=== PATIENT | female | born 1965 | race Caucasian/White ===

== ENCOUNTER 2018-06-04 21:06 | Emergency (ER) | payer MEDICAID ==
[2018-06-04] MEDS ORDERED: Ondansetron 4 MG/2 ML SDV IVPUSH ONE (21:59)
[2018-06-04] MEDS ORDERED: Ketorolac 30 MG/ML SDV IVPUSH ONE (21:59)
[2018-06-04] MEDS ORDERED: Sodium Chloride 0.9% 1,000 ML IV SCH (22:00)
--- NOTE | 2018-06-04 23:39 | EDM.PDOC ---
ED HPI GENERAL MEDICAL PROBLEM - General Chief Complaint: Abdominal Pain Stated Complaint: VOMITING/DIARRHEA Time Seen by Provider: 06/04/18 21:34 Source of Information: Reports: Patient History Limitations: Reports: No Limitations - History of Present Illness INITIAL COMMENTS - FREE TEXT/NARRATIVE: This is a 52-year-old female. She comes in tonight because she is having abdominal pain and some diarrhea. She states that her belly is gurgling a lot as well. She has a history of diverticulitis and had some mild lower abdominal tenderness. Today she also experienced an episode of nausea and vomiting and some sweating but no fever. She says she gets a history of diverticulitis one to 2 times every year. She denies any other acute symptoms. She does not take Tylenol or ibuprofen and she does not drink alcohol. He has no history of hepatitis. Abdomen Pain Score (Numeric/FACES): 10 - Related Data Allergies Allergy/AdvReac Type Severity Reaction Status Date / Time No Known Allergies Allergy Verified 06/04/18 21:35 Home Meds: Home Meds Dexlansoprazole [Dexilant] 30 mg PO DAILY 06/04/18 [History] Dicyclomine [Bentyl] 20 mg PO TID PRN #20 tab 06/04/18 [Rx] FLUoxetine [PROzac] 10 mg PO DAILY 06/04/18 [History] Levothyroxine Sodium [Synthroid] 115 mcg PO DAILY 06/04/18 [History] Montelukast [Singulair] 10 mg PO DAILY 06/04/18 [History] Potassium Bicarbonate/Cit Ac [K Effervescent] 25 meq PO QAM #5 tablet.eff [Rx] Past Medical History Gastrointestinal History: Reports: Diverticulosis, GERD Musculoskeletal History: Reports: Back Pain, Chronic, Neck Pain, Chronic Neurological History: Reports: Migraines Endocrine/Metabolic History: Reports: Hypothyroidism - Past Surgical History GI Surgical History: Reports: Cholecystectomy Female Surgical History: Reports: Hysterectomy Social & Family History - Tobacco Use Smoking Status *Q: Current Every Day Smoker Years of Tobacco use: 20 Packs/Tins Daily: 0.5 - Caffeine Use Caffeine Use: Reports: Coffee, Tea - Recreational Drug Use Recreational Drug Use: No ED ROS GENERAL - Review of Systems Review Of Systems: See Below Constitutional: Denies: Fever, Chills HEENT: Reports: No Symptoms Respiratory: Reports: No Symptoms Cardiovascular: Reports: No Symptoms Endocrine: Reports: No Symptoms GI/Abdominal: Reports: Abdominal Pain, Diarrhea, Nausea, Vomiting : Reports: No Symptoms Musculoskeletal: Reports: No Symptoms Skin: Reports: No Symptoms Neurological: Reports: No Symptoms Psychiatric: Reports: No Symptoms Hematologic/Lymphatic: Reports: No Symptoms ED EXAM, GI/ABD - Physical Exam Exam: See Below Exam Limited By: No Limitations General Appearance: Alert, WD/WN, No Apparent Distress Eyes: Bilateral: Normal Appearance Ears: Normal External Exam Nose: Normal Inspection Throat/Mouth: Normal Inspection, Normal Lips, Normal Voice, No Airway Compromise Head: Normocephalic Neck: Supple Respiratory/Chest: No Respiratory Distress, Lungs Clear, Normal Breath Sounds Cardiovascular: Regular Rate, Rhythm, No Murmur GI/Abdominal Exam: Soft, Other (Bowel sounds are normal, she has generalized soreness in the lower abdomen both left and right lower quadrants, I cannot feel her liver edge but she does complain of some soreness in the right upper quadrant, negative Hernandez sign, no rigidity no rebound noted on palpation) Back Exam: Normal Inspection, Full Range of Motion Extremities: Normal Inspection, Normal Range of Motion Neurological: Alert, Oriented Psychiatric: Normal Affect, Normal Mood Skin Exam: Warm, Dry Course - Vital Signs Last Recorded V/S: Last Vital Signs Temp 98.9 F 06/04/18 21:32 Pulse 75 06/04/18 21:32 Resp 20 06/04/18 21:32 BP 107/74 06/04/18 21:32 Pulse Ox 95 06/04/18 21:32 - Orders/Labs/Meds Orders: Active Orders 24 hr Category Date Time Status UA W/MICROSCOPIC [URIN] Stat Lab 06/04/18 23:08 Results Sodium Chloride 0.9% [Normal Saline] 1,000 ml Med 06/04/18 22:00 Active IV ASDIRECTED Medication Orders Sodium Chloride (Normal Saline) 1,000 mls @ 1,000 mls/hr IV ASDIRECTED CHRISTINA Last Admin: 06/04/18 22:39 Dose: 1,000 mls/hr Labs: Laboratory Tests 06/04/18 06/04/18 06/04/18 Range/Units 22:40 22:40 23:08 WBC 9.19 (3.98-10.04) K/mm3 RBC 5.02 (3.98-5.22) M/mm3 Hgb 14.7 (11.2-15.7) gm/L Hct 44.2 (34.1-44.9) % MCV 88.0 (79.4-94.8) fl MCH 29.3 (25.6-32.2) pg MCHC 33.3 (32.2-35.5) g/dl RDW Std Deviation 39.1 (36.4-46.3) fL Plt Count 276 (182-369) K/mm3 MPV 10.7 (9.4-12.3) fl Neut % (Auto) 83.9 H (34.0-71.1) % Lymph % (Auto) 7.0 L (19.3-51.7) % [place] % (Auto) 7.5 (4.7-12.5) % Eos % (Auto) 1.2 (0.7-5.8) Baso % (Auto) 0.2 (0.1-1.2) % Neut # (Auto) 7.71 H (1.56-6.13) K/mm3 Lymph # (Auto) 0.64 L (1.18-3.74) K/mm3 [place] # (Auto) 0.69 H (0.24-0.36) K/mm3 Eos # (Auto) 0.11 (0.04-0.36) K/mm3 Baso # (Auto) 0.02 (0.01-0.08) K/mm3 Manual Slide Review Abnormal smear Sodium 141 (136-145) mEq/L Potassium 3.1 L (3.5-5.1) mEq/L Chloride 105 (98-107) mEq/L Carbon Dioxide 23 (21-32) mEq/L Anion Gap 16.1 H (5-15) BUN 16 (7-18) mg/dL Creatinine 0.8 (0.55-1.02) mg/dL Est Cr Clr Drug Dosing 72.65 mL/min Estimated GFR (MDRD) > 60 (>60) mL/min BUN/Creatinine Ratio 20.0 H (14-18) Glucose 120 H (74-106) mg/dL Calcium 8.7 (8.5-10.1) mg/dL Total Bilirubin 0.4 (0.2-1.0) mg/dL AST 147 H (15-37) U/L ALT 118 H (14-59) U/L Alkaline Phosphatase 165 H (46-116) U/L C-Reactive Protein 3.4 H* (<1.0) mg/dL Total Protein 6.5 (6.4-8.2) g/dl Albumin 3.3 L (3.4-5.0) g/dl Globulin 3.2 gm/dL Albumin/Globulin Ratio 1.0 (1-2) Urine Color Eun H (Yellow) Urine Appearance Clear (Clear) Urine pH 5.5 (5.0-8.0) Ur Specific [place] > or = 1.030 (1.005-1.030) Urine Protein 1+ H (Negative) Urine Glucose (UA) Negative (Negative) Urine Ketones Negative (Negative) Urine Occult Blood Negative (Negative) Urine Nitrite Negative (Negative) Urine Bilirubin 1+ H (Negative) Urine Urobilinogen 0.2 (0.2-1.0) Ur Leukocyte Esterase Negative (Negative) Meds: Medications Generic Name Dose Route Start Last Admin Trade Name Freq PRN Reason Stop Dose Admin Sodium Chloride 1,000 mls @ 1,000 mls/hr 06/04/18 22:00 06/04/18 22:39 Normal Saline IV 1,000 mls/hr ASDIRECTED CHRISTINA Administration Discontinued Medications Generic Name Dose Route Start Last Admin Trade Name Freq PRN Reason Stop Dose Admin Ketorolac Tromethamine 30 mg 06/04/18 21:59 06/04/18 22:39 Toradol IVPUSH 06/04/18 22:00 30 mg ONETIME ONE Administration Ondansetron HCl 4 mg 06/04/18 21:59 06/04/18 22:40 Zofran IVPUSH 06/04/18 22:00 4 mg ONETIME ONE Administration - Re-Assessments/Exams Free Text/Narrative Re-Assessment/Exam: 06/04/18 23:37 I spoke to the patient regarding her lab results that her white count was normal her C reactive protein was slightly elevated but her liver enzymes were elevated and her potassium was 3.1. I do not believe that her diverticulitis is flared up at this point or if it is its very early. I am going to give her some Bentyl for abdominal cramps as well as give her a potassium supplement to bring her potassium back up. I encouraged her to follow-up with a local family doctor for reevaluation of her liver enzyme elevation as well as to monitor her diverticulitis. Patient states that she will. Departure - Departure Time of Disposition: 23:38 Disposition: Home, Self-Care 01 Condition: Fair Clinical Impression: Elevated liver enzymes, Hypokalemia Abdominal pain Qualifiers: Abdominal location: lower abdomen, unspecified Qualified Code(s): R10.30 - Lower abdominal pain, unspecified Diverticulosis Qualifiers: Diverticulosis site: diverticulosis of large intestine Diverticulosis bleeding : diverticulosis without bleeding Qualified Code(s): K57.30 - Diverticulosis of large intestine without perforation or abscess without bleeding - Discharge Information *PRESCRIPTION DRUG MONITORING PROGRAM REVIEWED*: Not Applicable *COPY OF PRESCRIPTION DRUG MONITORING REPORT IN PATIENT [place]: Not Applicable Prescriptions: Dicyclomine [Bentyl] 20 mg PO TID PRN #20 tab PRN Reason: Abdominal Pain Potassium Bicarbonate/Cit Ac [K Effervescent] 25 meq PO QAM #5 tablet.eff Referrals: PCP,None [Primary Care Provider] - Additional Instructions: take the Bentyl as needed for the abdominal cramps, and take the potassium faithfully for the next 5 days, follow-up with one of the physicians that we have giving you this next week for monitoring of your abdominal pain and your diverticulitis, have the doctor recheck your potassium and also monitor your liver enzymes that are elevated, return to the ER if needed - My Orders Last 24 Hours: My Active Orders 06/04/18 22:00 Sodium Chloride 0.9% [Normal Saline] 1,000 ml IV ASDIRECTED 06/04/18 23:08 UA W/MICROSCOPIC [URIN] Stat - Assessment/Plan Last 24 Hours: My Active Orders 06/04/18 22:00 Sodium Chloride 0.9% [Normal Saline] 1,000 ml IV ASDIRECTED 06/04/18 23:08 UA W/MICROSCOPIC [URIN] Stat
[2018-06-04] MEDS ORDERED: Dicyclomine 10 MG Cap PO ONE (23:47)
== END 2018-06-04 23:54 | disposition home or self-care (01) ==
LOC: JD.ED 21:06
DX: K57.30 Diverticulosis of large intestine without perforation or abscess without bleeding (principal); E87.6 Hypokalemia; R74.8 Abnormal levels of other serum enzymes; E03.9 Hypothyroidism, unspecified; F17.210 Nicotine dependence, cigarettes, uncomplicated; Z90.49 Acquired absence of other specified parts of digestive tract; Z90.710 Acquired absence of both cervix and uterus
CPT/HCPCS: 36415; 80053; 81001; 85025; 86140; 96361; 96374; 96375; 99284; A9270; J1885; J2405; J7040

== ENCOUNTER 2018-06-19 23:33 | Emergency (ER) | payer MEDICAID ==
--- NOTE | 2018-06-19 23:54 | EDM.PDOC ---
ED HPI GENERAL MEDICAL PROBLEM - General Chief Complaint: Abdominal Pain Stated Complaint: DIVERTIULITUS ABDOMINAL PAIN INFLAMATION Time Seen by Provider: 06/19/18 23:54 Source of Information: Reports: Patient History Limitations: Reports: No Limitations - History of Present Illness INITIAL COMMENTS - FREE TEXT/NARRATIVE: 52-year-old female presents to the ED with gradually worsening left lower quadrant and suprapubic abdominal pain. Patient has a history of recurrent diverticulitis she estimates about 6 bouts of diverticulitis in the last 5 years. She was seen at the walk-in clinic at [place] on 08 June and did have a CT scan which suggested diverticulitis. Patient was treated with Cipro 500 mg twice a day and Flagyl 500 mg 3 times a day for 5days. She reports the pain really never settled down. She is scheduled loose diarrhea stools usually 2-4 per day. Not noted. Now she is having increased suprapubic pressure discomfort with terminal dysuria and pressure in the perineum when she sits. She still claims to have intermittent fever and chills although she is afebrile the time of my exam. She's had previous transvaginal hysterectomy with laparoscopic assist and previous to that a tubal ligation. Is also had a previous laparoscopic cholecystectomy. He states she is walking slowly due to the pain. Appetite remains fair Onset: Gradual Onset Date: 06/05/18 (Do have left lower quadrant abdominal pain June 05 [facility] and diagnosed with diverticulitis) Duration: Day(s):, Getting Worse Location: Reports: Abdomen Quality: Reports: Ache (Left lower quadrant of the abdomen and suprapubic abdomen with pain in the perineum.), Other Severity: Moderate (Coughing makes the pain much worse) Improves with: Reports: Rest, Other Worsens with: Reports: Other (And lying down) Context: Denies: Activity ( with was standing and coughing.), Exercise, Lifting , Sick Contact, Trauma, Other Associated Symptoms: Reports: Fever/Chills, Loss of Appetite, Malaise ( Decreased appetite), Other (Loose stools usually 2-4 per day semi-formed at present). Denies: Headaches, Seizure, Shortness of Breath, Syncope, Weakness Treatments FLIGHT INFORMATION EXPEDITER: Reports: Other (see below) (Hydrocodone tablets when necessary) Lower Abdomen Pain Score (Numeric/FACES): 10 - Related Data Allergies Allergy/AdvReac Type Severity Reaction Status Date / Time No Known Allergies Allergy Verified 06/04/18 21:35 Home Meds: Home Meds Dexlansoprazole [Dexilant] 30 mg PO DAILY 06/04/18 [History] Dicyclomine [Bentyl] 20 mg PO TID PRN #20 tab 06/04/18 [Rx] FLUoxetine [PROzac] 10 mg PO DAILY 06/04/18 [History] Levothyroxine Sodium [Synthroid] 115 mcg PO DAILY 06/04/18 [History] Montelukast [Singulair] 10 mg PO DAILY 06/04/18 [History] Hydrocodone/Acetaminophen [Hydrocodon-Acetaminophen 5-325] 1 each PO Q4H #16 tablet 06/20/18 [Rx] Levofloxacin [Levaquin] 500 mg PO DAILY #7 tablet 06/20/18 [Rx] metroNIDAZOLE [Flagyl] 500 mg PO Q12H #14 tab 06/20/18 [Rx] Past Medical History Gastrointestinal History: Reports: Diverticulosis, GERD Musculoskeletal History: Reports: Back Pain, Chronic, Neck Pain, Chronic Neurological History: Reports: Migraines Endocrine/Metabolic History: Reports: Hypothyroidism - Past Surgical History GI Surgical History: Reports: Cholecystectomy Female Surgical History: Reports: Hysterectomy Social & Family History - Family History Family Medical History: Noncontributory - Tobacco Use Smoking Status *Q: Current Every Day Smoker Years of Tobacco use: 40 Packs/Tins Daily: 0.5 - Caffeine Use Caffeine Use: Reports: None - Recreational Drug Use Recreational Drug Use: No - Living Situation & Occupation Living situation: Reports: Occupation: Employed ED ROS GENERAL - Review of Systems Review Of Systems: See Below (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) Constitutional: Reports: Fever, Chills, Malaise, Decreased Appetite HEENT: Reports: No Symptoms Respiratory: Reports: No Symptoms Cardiovascular: Reports: No Symptoms Endocrine: Reports: Fatigue GI/Abdominal: Reports: Abdominal Pain (See history of present illness mostly left lower quadrant and suprapubic abdominal pain worsened by coughing and walking) : Reports: Frequency, Other Skin: Reports: No Symptoms Neurological: Reports: No Symptoms Psychiatric: Reports: No Symptoms Hematologic/Lymphatic: Reports: No Symptoms Immunologic: Reports: No Symptoms ED EXAM, GI/ABD - Physical Exam Exam: See Below Exam Limited By: No Limitations General Appearance: Alert, WD/WN, No Apparent Distress, Other (Vital signs are normal with temperature 36.6 pulse of 71 blood pressure 113/88) Eyes: Bilateral: Normal Appearance (No scleral icterus.) Throat/Mouth: Normal Inspection, Normal Lips, Normal Oropharynx Head: Atraumatic, Normocephalic Respiratory/Chest: No Respiratory Distress, Lungs Clear, Normal Breath Sounds, No Accessory Muscle Use Cardiovascular: Normal Peripheral Pulses, Regular Rate, Rhythm, No Edema, No Gallop, No Murmur, No Rub GI/Abdominal Exam: Normal Bowel Sounds, No Organomegaly, Guarding, Tender ( Tenderness appreciated suprapubically and left lower quadrant.). No: Rigid ( Tender left lower quadrant of the abdomen with some mild guarding but no rebound tenderness), Rebound Back Exam: Normal Inspection, Full Range of Motion. No: CVA Tenderness (L), CVA Tenderness (R) Extremities: Normal Inspection, Normal Range of Motion, Non-Tender, No Pedal Edema Neurological: Alert, Oriented, CN II-XII Intact, Normal Cognition Psychiatric: Normal Affect, Normal Mood Skin Exam: Warm, Intact, Normal Color, No Rash Course - Vital Signs Last Recorded V/S: Last Vital Signs Temp 36.6 C 06/19/18 23:46 Pulse 71 06/19/18 23:46 Resp 18 06/19/18 23:46 BP 113/88 06/19/18 23:46 Pulse Ox 94 L 06/19/18 23:46 - Orders/Labs/Meds Orders: Active Orders 24 hr Category Date Time Status Abdomen Pelvis w Cont [CT] Stat Exams 06/20/18 00:06 Taken Labs: Laboratory Tests 06/20/18 06/20/18 Range/Units 00:55 00:55 WBC 7.50 (3.98-10.04) K/mm3 RBC 4.85 (3.98-5.22) M/mm3 Hgb 13.9 (11.2-15.7) gm/L Hct 43.1 (34.1-44.9) % MCV 88.9 (79.4-94.8) fl MCH 28.7 (25.6-32.2) pg MCHC 32.3 (32.2-35.5) g/dl RDW Std Deviation 40.9 (36.4-46.3) fL Plt Count 338 (182-369) K/mm3 MPV 11.2 (9.4-12.3) fl Neutrophils % (Manual) 53 (40-60) % Band Neutrophils % 0 (0-10) % Lymphocytes % (Manual) 32 (20-40) % Atypical Lymphs % 0 % Monocytes % (Manual) 7 (2-10) % Eosinophils % (Manual) 5 (0.7-5.8) % Basophils % (Manual) 3 H (0.1-1.2) Platelet Estimate Adequate Plt Morphology Comment Normal RBC Morph Comment Normal Sodium 143 (136-145) mEq/L Potassium 4.1 (3.5-5.1) mEq/L Chloride 106 (98-107) mEq/L Carbon Dioxide 27 (21-32) mEq/L Anion Gap 14.1 (5-15) BUN 19 H (7-18) mg/dL Creatinine 0.6 (0.55-1.02) mg/dL Est Cr Clr Drug Dosing 96.86 mL/min Estimated GFR (MDRD) > 60 (>60) mL/min BUN/Creatinine Ratio 31.7 H (14-18) Glucose 111 H (74-106) mg/dL Calcium 8.8 (8.5-10.1) mg/dL Magnesium 1.9 (1.8-2.4) mg/dl Total Bilirubin 0.2 (0.2-1.0) mg/dL AST 20 (15-37) U/L ALT 38 (14-59) U/L Alkaline Phosphatase 161 H (46-116) U/L C-Reactive Protein 0.3 (<1.0) mg/dL Total Protein 6.9 (6.4-8.2) g/dl Albumin 3.4 (3.4-5.0) g/dl Globulin 3.5 gm/dL Albumin/Globulin Ratio 1.0 (1-2) Lipase 161 (73-393) U/L Meds: Medications Discontinued Medications Generic Name Dose Route Start Last Admin Trade Name Freq PRN Reason Stop Dose Admin Diatrizoate Meglum/Diatrizoate Sod 120 ml 06/20/18 01:52 06/20/18 01:53 Gastrografin 37% PO 06/20/18 01:53 60 ml ONETIME ONE Administration Hydromorphone HCl 1 mg 06/20/18 00:04 06/20/18 00:40 Dilaudid IVPUSH 06/20/18 00:05 1 mg ONETIME ONE Administration Hydromorphone HCl 1 mg 06/20/18 01:28 06/20/18 01:41 Dilaudid IVPUSH 06/20/18 01:29 1 mg ONETIME ONE Administration Dextrose/Sodium Chloride 1,000 mls @ 500 mls/hr 06/20/18 00:15 06/20/18 00:39 Dextrose 5%-Normal Saline IV 500 mls/hr ASDIRECTED CHRISTINA Administration Levofloxacin/Dextrose 750 mg/ 150 mls @ 100 mls/hr 06/20/18 00:07 06/20/18 00 :44 Premix IV 06/20/18 01:36 100 mls/hr ONETIME ONE Administration Iopamidol 100 ml 06/20/18 01:52 06/20/18 01:53 Isovue-300 (61%) IVPUSH 06/20/18 01:53 100 ml ONETIME ONE Administration Ondansetron HCl 4 mg 06/20/18 00:05 06/20/18 00:39 Zofran IVPUSH 06/20/18 00:06 4 mg ONETIME ONE Administration - Radiology Interpretation Free Text/Narrative:: 52-year-old female with a history of recurrent diverticulitis she estimates about 6 times. Presents to the ED with increasing left lower quadrant abdominal pain and suprapubic tenderness and pressure in the perineum she was seen initially on 08 June after having symptoms for [address] scan scan done at the clinic did reveal diverticulitis. She was placed on a course of Cipro and Flagyl I believe for 7 days. Her's that she didn't really seem to get better on this treatment plan and now is much worse over the last 4-5 days. This is worse now than several been. She claims to have intermittent fever and chills although she's afebrile at the time of my exam. Abdominal examination does reveal tenderness throughout the left lower quadrant and suprapubic abdomen with guarding but no rebound tenderness. On his with perineal pressure discomfort that she may well have a pelvic abscess. Therefore start repeat CT scan of the abdomen pelvis will be done with oral and IV contrast. I will not do blood cultures at this time since she is afebrile. Routine labs and CRP will be done. We'll start her on Levaquin 750 mg IV. Given Dilaudid 1 mg with Zofran 4 mg IV for pain relief. - Re-Assessments/Exams Free Text/Narrative Re-Assessment/Exam: 06/20/18 01:28 patient is pain is getting worse again since having the oral contrast. We'll therefore repeat Dilaudid 1 mg IV. Labs are back.Labs reveal a normal white count at 7.50 with differential pending. Hemoglobin is 13.9 with hematocrit of 43.1. Bili count is 338,000. Sodium was 143 with a potassium of 4.1. Chloride is 106 with a bicarbonate 27. Anion gap is 14.1. BUNs 19 with a creatinine of 0.6. Glucose is 111. Calcium was 8.8 with a magnesium of 1.9. Total bilirubin is 0.2. AST is 20. ALT is 38. Alk phosphatase is mildly elevated 161. C-reactive protein is 0.3. Total protein 6.9 with albumin fraction slightly low at 3.4. Lipase is 161. Labs are not suggestive of an abscess formation. She is scheduled for CT in about 15 minutes. 06/20/18 02:33 CT of the abdomen and pelvis has been completed with oral and IV contrast. Visualized portions of the base of the lungs are clear. The liver appears to have a asymmetric lesion in the left lobe compatible with an AV malformation. This needs to be compared to previous CT examination done at [facility] and perhaps follow-up with an ultrasound to help define characteristics of this lesion. Will await radiology report in this regard. Both kidneys appear to be normal with no signs of obstructing lesions. Both adrenal glands are normal. Pancreas is well-visualized and is normal. Stomach is contrast filled. The bowel does contain numerous diverticuli throughout the entire colon. There is no evidence of diverticular abscess or significant inflammation of the colon at this time. Amount of stool is present in the rectal vault. Therefore I believe she just needs to continue antibiotics for another week to settle down the inflammation completely. Placed on Levaquin 500 mg once daily for 7 more days and Flagyl 500 mg twice a day for another 7 days as well. She will follow-up with her personal care physician after this. Also advised her to go on Metamucil daily to try and prevent recurrent bouts of diverticulitis. Departure - Departure Time of Disposition: 02:39 Disposition: Home, Self-Care 01 Condition: Fair Clinical Impression: Diverticulitis of sigmoid colon - Discharge Information *PRESCRIPTION DRUG MONITORING PROGRAM REVIEWED*: Not Applicable *COPY OF PRESCRIPTION DRUG MONITORING REPORT IN PATIENT [place]: Not Applicable Prescriptions: Hydrocodone/Acetaminophen [Hydrocodon-Acetaminophen 5-325] 1 each PO Q4H #16 tablet Levofloxacin [Levaquin] 500 mg PO DAILY #7 tablet metroNIDAZOLE [Flagyl] 500 mg PO Q12H #14 tab Instructions: Diverticulitis, [id number] Referrals: PCP,None [Primary Care Provider] - Forms: ED Department Discharge Additional Instructions: Evaluation in the emergency room tonight in regards to persistent lower abdominal pain after being treated for diverticulitis on 08 June. A 7 day course of antibiotic were given at that time which was Cipro and Flagyl. Over the last 4-5 days you've had increasing daily left lower quadrant and suprapubic abdominal pain as well as pressure in the perineum when you sit. Associated intermittent fever and chills. For concerns were voiced about potential diverticular abscess formation. Lab work carried out reveals a normal white count with no signs of serious infection. CT of the abdomen and pelvis was performed and reveals extensive diverticula of the entire left lower colon and upper colon. Active diverticulitis or infective process outside the colon was appreciated and no abscess was identified in the pelvis. Appears that the diverticulitis is partially treated and therefore I think it's prudent that you continue antibiotic therapy. He did receive Levaquin 750 mg intravenously while in the ED. Suggest Levaquin 500 milligrams Once daily every night after supper for the next 7 days with metronidazole's 500 mg twice daily starting tomorrow morning for the next 7 days as well. Pain medication is to be used sparingly and as needed for lower abdominal pain. Suggest use of Metamucil on a daily basis to try to prevent recurrence of diverticular disease. - My Orders Last 24 Hours: My Active Orders 06/20/18 00:06 Abdomen Pelvis w Cont [CT] Stat - Assessment/Plan Last 24 Hours: My Active Orders 06/20/18 00:06 Abdomen Pelvis w Cont [CT] Stat
[2018-06-20] MEDS ORDERED: HYDROmorphone 1 MG/ML Syringe IVPUSH ONE ×2 (00:04→01:28)
[2018-06-20] MEDS ORDERED: Ondansetron 4 MG/2 ML SDV IVPUSH ONE (00:05)
[2018-06-20] MEDS ORDERED: Levofloxacin/Dextrose 5%-Water 750 MG in Premix Bag 1 BAG IV ONE (00:07)
[2018-06-20] MEDS ORDERED: Dextrose 5%-0.9% NaCl 1,000 ML IV SCH (00:15)
[2018-06-20] MEDS ORDERED: Diatrizoate Meglumine/Diatrizoate Sodium 37% 120 ML Bottle PO ONE (01:52)
[2018-06-20] MEDS ORDERED: Iopamidol 612 MG/ML 100 ML Bottle IVPUSH ONE (01:52)
--- NOTE | 2018-06-20 07:25 | CT ---
CT abdomen and pelvis Technique: Multiple axial sections were obtained from above the dome of the diaphragm inferiorly through the pubic symphysis. Intravenous and oral contrast was utilized. Delayed images were obtained through the bladder. Comparison: No prior abdominal imaging. Findings: Contrast noted within the distal esophagus suspicious for reflux. Small portion of the both lung bases are clear. Irregular and slightly enhancing mass lesion is noted within the liver mostly centered at the caudate lobe. This measures up to 5.9 cm in size and shows a low density center. No additional abnormality identified within the liver. Spleen appears within normal limits. Adrenal glands show no nodule. Pancreas is within normal limits. Surgical clips noted from prior cholecystectomy. Kidneys show symmetric contrast enhancement. Small 4 mm cyst noted within the right kidney. Aorta shows no aneurysm. No retroperitoneal adenopathy is seen. No mesenteric abnormalities are seen. Diverticuli are seen within the sigmoid and descending colon without diverticulitis. Appendix is seen which appears normal in size. No pelvic mass or adenopathy is seen. Mild increased stool noted within the colon. Delayed images show contrast within the distal ureters and within the bladder. Bone window settings show bilateral spondylolytic defects at L5-S1. Impression: 1. Liver mass with center area of poor enhancement suggesting the possibility of focal nodular hyperplasia. MRI could be obtained to make sure this has the same appearance by that modality. Alternatively, if patient has any outside imaging to allow for stability would also be helpful. 2. Mild increased stool within the colon. 3. Contrast reflux into the distal esophagus. 4. Other incidental findings as noted above. Nothing acute is seen. Diagnostic code #9 I agree with preliminary report from [facility], finalized on 06/20/18, 3:43 AM Central Time
== END 2018-06-20 02:57 | disposition home or self-care (01) ==
LOC: JD.ED 23:33
DX: K57.32 Diverticulitis of large intestine without perforation or abscess without bleeding (principal); F17.210 Nicotine dependence, cigarettes, uncomplicated; Z79.899 Other long term (current) drug therapy
CPT/HCPCS: 36415; 74177; 80053; 83690; 83735; 85007; 85027; 86140; 96361; 96365; 96375; 96376; 99284; J1170; J1956; J2405; J7042; Q9963; Q9967

== ENCOUNTER 2018-06-29 18:51 | Emergency (ER) | payer MEDICAID ==
[2018-06-29] MEDS ORDERED: Albuterol/Ipratropium 3.0-0.5 MG/3 ML Neb Soln NEB ONE (20:16)
--- NOTE | 2018-06-29 20:16 | EDM.PDOC ---
ED HPI GENERAL MEDICAL PROBLEM - General Chief Complaint: Respiratory Problem Stated Complaint: LUNGS SHORT OF BREATH Time Seen by Provider: 06/29/18 19:20 Source of Information: Reports: Patient, Family (), RN Notes Reviewed History Limitations: Reports: No Limitations - History of Present Illness INITIAL COMMENTS - FREE TEXT/NARRATIVE: The patient states that she has had a dry cough for the past 2 weeks. She states that she has been wheezing for 5 years, but that it is worse over the past couple of weeks. Her symptoms are worse when she is supine. No recent fever. The patient also reports left-sided chest soreness when she coughs. No prior medical evaluation for her current symptoms. The patient states that she was given the presumptive diagnosis of COPD, and that she ordinarily takes Singulair, Symbicort, and albuterol by both nebulizer and MDI, and she states that she has continued to take her usual medications, but that she has not taken any albuterol for over a month, because her nebulizer machine is in storage. She reports that she has a space chamber for her MDI, however. In addition, the patient states that she has taken Mucinex, with no improvement in her symptoms. The patient is a committed smoker, currently smoking 1 pack per day, down from 4 packs per day, since she was 15 years old. The patient also reports that she has continued to have abdominal pain. She states that she was diagnosed with diverticulitis on her most recent ED visit, treated with antibiotics, but that her symptoms have persisted. Review of prior medical records finds that the patient has been seen in this ED on only 2 prior occasions - 06/04/2018, and 06/19/2018. On her first visit, she presented with abdominal pain, nausea, vomiting, and some diarrhea. She reported a time that she had a prior history of diverticulitis, with exacerbations 1-2 times every year. No recent fever. She was found to be hemodynamically stable. A CBC, CMP, CRP, and urinalysis were entirely unremarkable, with exception of her potassium being mildly depressed at 3.1, mildly elevated transaminases, and a CRP of 3.4. She was given IV fluid , Toradol, Zofran, then discharged home with prescriptions for Bentyl and potassium chloride. She was advised to follow-up with PCP for reevaluation of her elevated LFTs and to monitor her articular disease. On the patient's second visit, she presented with a complaint of gradually worsening left lower quadrant and suprapubic abdominal pain. During that visit, she reported that she had had about 6 bouts of diverticulitis over the previous 5 years. She stated that she had been seen at the [facility] in clinic on 06/08 (after her earlier ED visit), and that a CT scan of her abdomen and pelvis suggested diverticulitis. She was treated with ciprofloxacin 500 mg BID and Flagyl 500 mg TID for 5 days. She reported that her pain had not improved, and that she continued to have loose bowel movements. She reported intermittent fevers and chills, although was noted to be afebrile in the ED. Workup included a CBC, CMP, magnesium level, CRP, lipase level, and a CT scan of the abdomen and pelvis with oral and IV contrast. Her entire workup was unremarkable during the CT scan, which noted a diverticuli in the sigmoid and descending colon without diverticulitis. Oral contrast was noted to reflux into the esophagus. The patient was treated with IV fluid, 2 mg of IV Dilaudid, IV Zofran, and 750 mg of IV Levaquin. The patient was then discharged home with prescriptions for Levaquin 500 mg Qday, Flagyl 500 mg TID x 7 days, and [place] 5/325 1 tab Q4 hrs # 16. She was advised to start taking Metamucil. The patient acknowledges that she has not followed up, and that she does not have a PCP. Throat Pain Score (Numeric/FACES): 9 - Related Data Allergies Allergy/AdvReac Type Severity Reaction Status Date / Time No Known Allergies Allergy Verified 06/29/18 19:01 Home Meds: Home Meds Dexlansoprazole [Dexilant] 30 mg PO DAILY 06/04/18 [History] Dicyclomine [Bentyl] 20 mg PO TID PRN #20 tab 06/04/18 [Rx] FLUoxetine [PROzac] 10 mg PO DAILY 06/04/18 [History] Levothyroxine Sodium [Synthroid] 115 mcg PO DAILY 06/04/18 [History] Montelukast [Singulair] 10 mg PO DAILY 06/04/18 [History] Past Medical History HEENT History: Reports: Impaired Vision Respiratory History: Reports: COPD (suspected, not tested) Gastrointestinal History: Reports: Diverticulosis, GERD Musculoskeletal History: Reports: Back Pain, Chronic, Neck Pain, Chronic Endocrine/Metabolic History: Reports: Hypothyroidism - Past Surgical History HEENT Surgical History: Reports: Oral Surgery, Tonsillectomy GI Surgical History: Reports: Cholecystectomy (2016) Female Surgical History: Reports: Breast Implant, Hysterectomy (partial, transvaginal with laparoscopic assistance), Other (See Below) (Ectopic x 2) Social & Family History - Family History Family Medical History: Noncontributory - Tobacco Use Smoking Status *Q: Current Every Day Smoker Years of Tobacco use: 37 Packs/Tins Daily: 1 Packs/Tins Daily Comment: Down from 4 ppd - Caffeine Use Caffeine Use: Reports: None - Alcohol Use Alcohol Use History: Yes Date/Time of Last Drink Comment: No alcohol since around 2012 - Recreational Drug Use Recreational Drug Use: No - Living Situation & Occupation Living situation: Reports: , with Spouse Occupation: Unemployed ED ROS GENERAL - Review of Systems Review Of Systems: ROS reveals no pertinent complaints other than HPI. ED EXAM, GENERAL - Physical Exam Exam: See Below Exam Limited By: No Limitations General Appearance: Alert, WD/WN, No Apparent Distress Eye Exam: Bilateral Eye: EOMI, Normal Inspection Ears: Normal External Exam, Hearing Grossly Normal Nose: Normal Inspection Throat/Mouth: Normal Inspection, Normal Lips, Normal Voice, No Airway Compromise Head: Atraumatic, Normocephalic Neck: Normal Inspection, Full Range of Motion Respiratory/Chest: No Respiratory Distress, No Accessory Muscle Use, Rhonchi ( increased when supine), Wheezing (expiratory). No: Decreased Breath Sounds, Crackles, Prolonged Expiration Cardiovascular: Normal Peripheral Pulses, Regular Rate, Rhythm, No Gallop, No JVD, No Murmur, No Rub Peripheral Pulses: 4+: Radial (L), Radial (R) GI/Abdominal: Normal Bowel Sounds, Soft, Non-Tender, No Organomegaly, No Distention, No Abnormal Bruit, No Mass (Female) Exam: Deferred Rectal (Female) Exam: Deferred Back Exam: Normal Inspection, Full Range of Motion, NT Extremities: Normal Inspection, Normal Range of Motion, No Pedal Edema, Normal Capillary Refill Neurological: Alert, Oriented, Normal Cognition, No Motor/Sensory Deficits Psychiatric: Anxious Skin Exam: Warm, Dry, Intact, Normal Color, No Rash Course - Vital Signs Last Recorded V/S: Last Vital Signs Temp 36.4 C 06/29/18 19:04 Pulse 80 06/29/18 19:04 Resp 16 06/29/18 19:04 BP 131/90 06/29/18 19:04 Pulse Ox 93 L 06/29/18 20:16 - Orders/Labs/Meds Orders: Active Orders 24 hr Category Date Time Status RT Aerosol Therapy [RC] ASDIRECTED Care 06/29/18 20:16 Active Chest 2V [CR] Stat Exams 06/29/18 20:13 Taken Labs: Laboratory Tests 06/29/18 06/29/18 Range/Units 20:35 20:35 WBC 7.15 (3.98-10.04) K/mm3 RBC 4.75 (3.98-5.22) M/mm3 Hgb 13.7 (11.2-15.7) gm/L Hct 42.3 (34.1-44.9) % MCV 89.1 (79.4-94.8) fl MCH 28.8 (25.6-32.2) pg MCHC 32.4 (32.2-35.5) g/dl RDW Std Deviation 43.0 (36.4-46.3) fL Plt Count 311 (182-369) K/mm3 MPV 10.7 (9.4-12.3) fl Neutrophils % (Manual) 69 H (40-60) % Band Neutrophils % 0 (0-10) % Lymphocytes % (Manual) 18 L (20-40) % Atypical Lymphs % 0 % Monocytes % (Manual) 9 (2-10) % Eosinophils % (Manual) 3 (0.7-5.8) % Basophils % (Manual) 1 (0.1-1.2) Platelet Estimate Adequate RBC Morph Comment Normal Sodium 142 (136-145) mEq/L Potassium 4.2 (3.5-5.1) mEq/L Chloride 105 (98-107) mEq/L Carbon Dioxide 25 (21-32) mEq/L Anion Gap 16.2 H (5-15) BUN 16 (7-18) mg/dL Creatinine 0.8 (0.55-1.02) mg/dL Est Cr Clr Drug Dosing 72.65 mL/min Estimated GFR (MDRD) > 60 (>60) mL/min BUN/Creatinine Ratio 20.0 H (14-18) Glucose 97 (74-106) mg/dL Calcium 9.4 (8.5-10.1) mg/dL Total Bilirubin 0.1 L (0.2-1.0) mg/dL AST 17 (15-37) U/L ALT 29 (14-59) U/L Alkaline Phosphatase 138 H (46-116) U/L Total Protein 7.3 (6.4-8.2) g/dl Albumin 3.6 (3.4-5.0) g/dl Globulin 3.7 gm/dL Albumin/Globulin Ratio 1.0 (1-2) Meds: Medications Discontinued Medications Generic Name Dose Route Start Last Admin Trade Name Freq PRN Reason Stop Dose Admin Albuterol/Ipratropium 3 ml 06/29/18 20:16 06/29/18 20:39 Duoneb 3.0-0.5 Mg/3 Ml NEB 06/29/18 20:17 3 ml ONETIME ONE Administration - Re-Assessments/Exams Free Text/Narrative Re-Assessment/Exam: 06/29/18 20:14 While the patient states that she has a history of COPD, she has never undergone pulmonary function tests, so such a diagnosis at this time is speculative. The patient may be suffering from a COPD exacerbation, however, by history, she is more likely suffering from acute bronchitis. For today's purposes, I have ordered a CBC, CMP, and two-view chest radiograph, to make sure that she does not have an infiltrate. I have also ordered a DuoNeb, to see if that modifies the expiratory wheezing that I hear on auscultation. We would expect improvement with COPD, but not with bronchitis. 06/29/18 21:05 2-view chest radiograph appears to be grossly normal. The cardiac silhouette is within normal limits. No pulmonary vascular congestion. No pleural effusions. No focal infiltrate. No pneumothorax. Formal read per the Radiologist pending. 06/29/18 21:27 Test results discussed with the patient and her , and the patient was re- examined. Unfortunately, the patient had no improvement from the DuoNeb, indicating that her current symptoms are due to acute bronchitis. I explained to the patient that while it is true that in the past numerous treatment modalities have been tried, including antibiotics, various inhaled medications, steroids, NSAIDs, and a variety of cough syrups, that, unfortunately, no treatment has ever been shown to be beneficial for the treatment of acute bronchitis. The painful truth is that it simply has to run its course, and that until it resolves, the patient is going to be miserable. I suggested that she take eqwi-rat-hvetigm ibuprofen to treat her chest soreness from coughing, but I am not recommending any prescription or other esou-rmd-ovgozco medications. I will refer her to the clinic for follow-up, and from there the patient may also be referred to a surgeon for a colonoscopy. Departure - Departure Time of Disposition: 21:30 Disposition: Home, Self-Care 01 Condition: Fair Clinical Impression: Acute bronchitis - Discharge Information *PRESCRIPTION DRUG MONITORING PROGRAM REVIEWED*: Not Applicable *COPY OF PRESCRIPTION DRUG MONITORING REPORT IN PATIENT [place]: Not Applicable Instructions: Acute Bronchitis, Adult Referrals: Rani Caro MD [Physician] - Forms: ED Department Discharge Additional Instructions: You were seen in the emergency room for a two-week history of a cough and wheezing, it is worse when you are lying down. Workup in the ER included blood work and a chest x-ray, all of which were completely normal. You do not have pneumonia. You do not have a collapsed lung. You were treated with a DuoNeb in the ER, without improvement in your symptoms. Based on your history and physical examination, and ER tests, you are suffering from acute bronchitis, a viral illness that causes inflammation in the tubes that lead into your lungs. As discussed, unfortunately, there are no medicines that have been shown to be of benefit for the treatment of acute bronchitis - not inhaled medicines, steroids, or cough syrups. It is a viral illness that will simply have to run its course. You may take zzeh-moo-[id number] ibuprofen, 2-3 tablets (400-600 mg) every 8 hours , with food, as needed for chest discomfort. We recommend that you strongly consider quitting smoking. Follow-up with Dr. Rani Caro in the clinic, as a primary care physician. She may want to refer you to a surgeon for a colonoscopy, to evaluate your chronic abdominal pain. If any other problems, please do not hesitate to return to the ER. - My Orders Last 24 Hours: My Active Orders 06/29/18 20:13 Chest 2V [CR] Stat 02/20/19 20:16 RT Aerosol Therapy [RC] ASDIRECTED - Assessment/Plan Last 24 Hours: My Active Orders 06/29/18 20:13 Chest 2V [CR] Stat 06/29/18 20:16 RT Aerosol Therapy [RC] ASDIRECTED
--- NOTE | 2018-06-30 06:56 | CR ---
Chest: Two views of the chest were obtained. Comparison: No prior chest x-ray. Heart size and mediastinum are normal. Lung markings slightly increased within the left mid lung. Lungs otherwise are clear. Bony structures are unremarkable. Impression: 1. Slight density within the left mid lung possibly due to early area of pneumonia. Diagnostic code #3
== END 2018-06-29 21:35 | disposition home or self-care (01) ==
LOC: JD.ED 18:51
DX: J20.9 Acute bronchitis, unspecified (principal); F17.210 Nicotine dependence, cigarettes, uncomplicated; J44.9 Chronic obstructive pulmonary disease, unspecified; E03.9 Hypothyroidism, unspecified; Z79.899 Other long term (current) drug therapy
CPT/HCPCS: 36415; 71046; 71046-26; 80053; 85007; 85027; 94640; 99283; 99285-25; J7620-GY

== ENCOUNTER 2019-02-17 23:39 | Emergency (ER) | payer OTHER, MEDICAID ==
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
[2019-02-18] MEDS ORDERED: Ibuprofen 400 MG Tab PO ONE (00:43)
--- NOTE | 2019-02-18 09:57 | CT ---
CT cervical spine Technique: Multiple axial sections were obtained from above C1 inferiorly to the bottom of T2. Reconstructed sagittal and coronal images were reviewed. Findings: Slight degenerative change is noted between the dens and anterior arch of C1. Mild disc space narrowing is noted at C5-6 and C6-7. Slight posterior osteophytes are noted at C6-7. Minimal anterior osteophytes are noted at C5-6 and C6-7. Mild degenerative change is noted within the apophyseal joints within the upper cervical spine. No fracture is identified. No abnormal subluxation is seen. No bony central or bony neural foraminal stenosis is seen. Mild kyphosis is present most likely positional. Impression: 1. Mild degenerative change. 2. Kyphosis which is most likely positional. 3. Nothing acute is appreciated on CT study of the cervical spine. Diagnostic code #2 I agree with preliminary report from [facility], finalized on 02/18/19, 1:50 AM Central Time
--- NOTE | 2019-02-18 10:14 | CT ---
Head CT Technique: Multiple axial sections through the brain were obtained. Intravenous contrast was not utilized. Comparison: No prior intracranial imaging is available. Findings: Ventricles along with basal cisterns and sulci over the convexities appear within normal limits for the patient's age. Minimal low density finding is noted between the frontal horns of the lateral ventricle. Uncertain if this is real or represents minimal colloid cyst but given its small size is felt to be incidental. Bony exostosis is noted off the inner table of the frontal skull which is felt to be incidental. No evidence of intracranial hemorrhage. No abnormal parenchymal densities are seen. No midline shift or mass effect is seen. Bone window settings were reviewed which shows no acute calvarial abnormality. Mastoid sinuses are clear. Visualized paranasal sinuses are clear. Impression: 1. Findings which are felt to be incidental and of no acute significance as noted above. 2. No acute intracranial abnormality is identified. Diagnostic code #2 I agree with preliminary report from [facility], finalized on 02/18/19, 1:52 AM Central Time
--- NOTE | 2019-02-18 10:18 | CR ---
Lumbar spine: AP and lateral views of the lumbar spine were obtained as well as coned down lateral view centered to the lumbosacral junction. Comparison: No previous study. Findings: Vertebral body heights and disc spaces are maintained. Mild scattered endplate osteophytes are seen. Pedicles are intact. Visualized transverse and spinous processes are intact. No subluxation or discrete fracture is appreciated. Surgical clips are seen from prior cholecystectomy. Sacroiliac joints are within normal limits. Impression: 1. Slight degenerative change, previous cholecystectomy. 2. Nothing acute is definitely appreciated on this 3 view lumbar spine study. Diagnostic code #2
--- NOTE | 2019-02-18 10:47 | CR ---
Thoracic spine: AP and lateral views of the thoracic spine were obtained. Comparison: Spine visualized partially on chest x-ray of 06/29/18. Findings: Stable appearing scoliosis is noted within the spine. Vertebral body heights and disc spaces are maintained within the thoracic spine. Pedicles are intact. No discrete fracture or subluxation is seen. Impression: 1. Mild scoliosis. 2. Nothing acute is definitely appreciated on 2 view thoracic spine exam. Diagnostic code #2
== END 2019-02-18 01:25 | disposition home or self-care (01) ==
LOC: JD.ED 23:39
DX: S29.019A Strain of muscle and tendon of unspecified wall of thorax, initial encounter (principal); S39.012A Strain of muscle, fascia and tendon of lower back, initial encounter; S13.9XXA Sprain of joints and ligaments of unspecified parts of neck, initial encounter; S00.03XA Contusion of scalp, initial encounter; J44.9 Chronic obstructive pulmonary disease, unspecified; E03.9 Hypothyroidism, unspecified; F32.9 Major depressive disorder, single episode, unspecified; F41.9 Anxiety disorder, unspecified; F17.210 Nicotine dependence, cigarettes, uncomplicated; K21.9 Gastro-esophageal reflux disease without esophagitis; Z79.890 Hormone replacement therapy; Z79.899 Other long term (current) drug therapy; V43.52XA Car driver injured in collision with other type car in traffic accident, initial encounter; Y92.410 Unspecified street and highway as the place of occurrence of the external cause
CPT/HCPCS: 70450; 72072; 72100; 72125; 99285; A9270; 99284

== ENCOUNTER 2019-08-03 21:04 | Emergency (ER) | payer MEDICAID, OTHER ==
--- NOTE | 2019-08-03 21:21 | EDM.PDOC ---
ED HPI GENERAL MEDICAL PROBLEM - General Chief Complaint: Abdominal Pain Stated Complaint: [facility] Time Seen by Provider: 08/03/19 21:20 - History of Present Illness INITIAL COMMENTS - FREE TEXT/NARRATIVE: This 53-year-old female presents the emergency room with abdominal pain. Patient has a history of diverticulitis she was treated empirically at the walk- in clinic with Flagyl and Cipro a week ago but has not gotten any better she also complains that she is out of her thyroid medication. She has been out of this for about a month she normally takes 112 mcg daily. Denies any fevers or chills but the pain if anything is getting a little worse. She denies any burning or frequency with urination she has no chance of being she has had a hysterectomy. She is new to the area. Onset: Other (Has been ongoing she has had symptoms for a week with antibiotics not improving) Left Lower Abdomen Pain Score (Numeric/FACES): 8 - Related Data Allergies Allergy/AdvReac Type Severity Reaction Status Date / Time No Known Allergies Allergy Verified 08/03/19 21:09 Home Meds: Home Meds Dexlansoprazole [Dexilant] 30 mg PO DAILY 06/04/18 [History] FLUoxetine [PROzac] 10 mg PO DAILY 06/04/18 [History] Levothyroxine Sodium [Synthroid] 115 mcg PO DAILY 06/04/18 [History] Montelukast [Singulair] 10 mg PO DAILY 06/04/18 [History] Naproxen 500 mg PO Q8H PRN #12 tablet 02/18/19 [Rx] Ciprofloxacin [Ciprofloxacin HCl] 500 mg PO BID 08/03/19 [History] metroNIDAZOLE [Metronidazole] 500 mg PO TID 08/03/19 [History] Levothyroxine Sodium [Levoxyl] 112 mcg PO Q24H #30 tablet 08/04/19 [Rx] Past Medical History HEENT History: Reports: Impaired Vision Cardiovascular History: Reports: None Respiratory History: Reports: COPD Gastrointestinal History: Reports: Diverticulosis, GERD 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 Musculoskeletal History: Reports: Back Pain, Chronic, Neck Pain, Chronic Neurological History: Reports: Migraines Psychiatric History: Reports: Anxiety, Depression Endocrine/Metabolic History: Reports: Hypothyroidism Hematologic History: Reports: None Immunologic History: Reports: None Oncologic (Cancer) History: Reports: None Dermatologic History: Reports: None - Infectious Disease History Infectious Disease History: Reports: None - Past Surgical History HEENT Surgical History: Reports: Oral Surgery, Tonsillectomy GI Surgical History: Reports: Cholecystectomy Female Surgical History: Reports: Breast Implant, Hysterectomy Social & Family History - Family History Family Medical History: Noncontributory - Tobacco Use Smoking Status *Q: Current Every Day Smoker Years of Tobacco use: 31 Packs/Tins Daily: 0.5 - Caffeine Use Caffeine Use: Reports: None - Recreational Drug Use Recreational Drug Use: No - Living Situation & Occupation Living situation: Reports: , with Spouse Occupation: Unemployed ED ROS GENERAL - Review of Systems Review Of Systems: See Below Constitutional: Denies: Fever, Chills HEENT: Reports: No Symptoms Respiratory: Reports: No Symptoms Cardiovascular: Reports: No Symptoms GI/Abdominal: Reports: Abdominal Pain. Denies: Black Stool, Bloody Stool, Constipation, Diarrhea, Decreased Appetite, Hematochezia, Melena, Nausea, Vomiting Musculoskeletal: Reports: No Symptoms Skin: Reports: No Symptoms Neurological: Reports: No Symptoms ED EXAM, GI/ABD - Physical Exam Exam: See Below Exam Limited By: No Limitations General Appearance: Alert, No Apparent Distress Head: Atraumatic, Normocephalic Neck: Normal Inspection, Supple, Non-Tender, Full Range of Motion. No: Lymphadenopathy (L), Lymphadenopathy (R) Respiratory/Chest: No Respiratory Distress, Lungs Clear Cardiovascular: Regular Rate, Rhythm, No Edema, No Murmur GI/Abdominal Exam: Normal Bowel Sounds, Soft, Tender (Diffuse tenderness throughout rigidity rebound or guarding) Back Exam: Normal Inspection. No: CVA Tenderness (L), CVA Tenderness (R) Extremities: Normal Inspection, No Pedal Edema Course - Vital Signs Last Recorded V/S: Last Vital Signs Temp 37.0 C 08/03/19 21:05 Pulse 80 08/03/19 21:05 Resp 16 08/03/19 21:05 BP 123/89 08/03/19 21:05 Pulse Ox 96 08/03/19 21:05 - Orders/Labs/Meds Orders: Active Orders 24 hr Category Date Time Status Abdomen w Cont [CT] Stat Exams 08/03/19 21:35 Ordered CULTURE URINE [RM] Stat Lab 08/03/19 21:50 Received Lactated Ringers [Ringers, Lactated] 1,000 ml Med 08/03/19 23:21 Ordered IV .BOLUS Lactated Ringers [Ringers, Lactated] 1,000 ml Med 08/03/19 21:45 Active IV ASDIRECTED Medication Orders Lactated Ringer's (Ringers, Lactated) 1,000 mls @ 150 mls/hr IV ASDIRECTED CHRISTINA Lactated Ringer's (Ringers, Lactated) 1,000 mls @ 999 mls/hr IV .BOLUS ONE Stop: 08/04/19 00:21 Last Admin: 08/03/19 23:28 Dose: 999 mls/hr Labs: Laboratory Tests 08/03/19 08/03/19 08/03/19 Range/Units 21:49 21:49 21:50 WBC 8.67 (3.98-10.04) K/mm3 RBC 5.17 (3.98-5.22) M/mm3 Hgb 15.6 D (11.2-15.7) gm/dl Hct 47.1 H (34.1-44.9) % MCV 91.1 (79.4-94.8) fl MCH 30.2 (25.6-32.2) pg MCHC 33.1 (32.2-35.5) g/dl RDW Std Deviation 43.0 (36.4-46.3) fL Plt Count 377 H (182-369) K/mm3 MPV 11.2 (9.4-12.3) fl Neut % (Auto) 57.9 (34.0-71.1) % Lymph % (Auto) 26.1 (19.3-51.7) % [place] % (Auto) 12.3 (4.7-12.5) % Eos % (Auto) 2.7 (0.7-5.8) Baso % (Auto) 0.7 (0.1-1.2) % Neut # (Auto) 5.02 (1.56-6.13) K/mm3 Lymph # (Auto) 2.26 (1.18-3.74) K/mm3 [place] # (Auto) 1.07 H (0.24-0.36) K/mm3 Eos # (Auto) 0.23 (0.04-0.36) K/mm3 Baso # (Auto) 0.06 (0.01-0.08) K/mm3 Sodium 141 (136-145) mEq/L Potassium 4.3 (3.5-5.1) mEq/L Chloride 103 (98-107) mEq/L Carbon Dioxide 28 (21-32) mEq/L Anion Gap 14.3 (5-15) BUN 25 H (7-18) mg/dL Creatinine 0.8 (0.55-1.02) mg/dL Est Cr Clr Drug Dosing 71.84 mL/min Estimated GFR (MDRD) > 60 (>60) mL/min BUN/Creatinine Ratio 31.3 H (14-18) Glucose 94 (74-106) mg/dL Calcium 9.3 (8.5-10.1) mg/dL Total Bilirubin 0.3 (0.2-1.0) mg/dL AST 18 (15-37) U/L ALT 35 (14-59) U/L Alkaline Phosphatase 143 H (46-116) U/L Total Protein 8.1 (6.4-8.2) g/dl Albumin 4.1 (3.4-5.0) g/dl Globulin 4.0 gm/dL Albumin/Globulin Ratio 1.0 (1-2) Urine Color Yellow (Yellow) Urine Appearance Clear (Clear) Urine pH 6.0 (5.0-8.0) Ur Specific Ker[place] > or = 1.030 (1.005-1.030) Urine Protein Negative (Negative) Urine Glucose (UA) Negative (Negative) Urine Ketones Negative (Negative) Urine Occult Blood Negative (Negative) Urine Nitrite Negative (Negative) Urine Bilirubin Negative (Negative) Urine Urobilinogen 0.2 (0.2-1.0) Ur Leukocyte Esterase Trace H (Negative) Urine RBC 0-5 (0-5) /hpf Urine WBC 0-5 (0-5) /hpf Ur Squamous Epith Cells 5-10 H (0-5) /hpf Urine Bacteria Few (FEW) /hpf Urine Mucus Few (FEW) /hpf Meds: Medications Generic Name Dose Route Start Last Admin Trade Name Freq PRN Reason Stop Dose Admin Lactated Ringer's 1,000 mls @ 150 mls/hr 08/03/19 21:45 Ringers, Lactated IV ASDIRECTED CHRISTINA Lactated Ringer's 1,000 mls @ 999 mls/hr 08/03/19 23:21 03/26/20 23:28 Ringers, Lactated IV 08/04/19 00:21 999 mls/hr .BOLUS ONE Administration Discontinued Medications Generic Name Dose Route Start Last Admin Trade Name Jose Armando PRRe Reason Stop Dose Admin Lactated Ringer's 1,000 mls @ 999 mls/hr 08/03/19 21:36 08/03/19 22:04 Ringers, Lactated IV 08/03/19 22:36 999 mls/hr .BOLUS ONE Administration - Re-Assessments/Exams Free Text/Narrative Re-Assessment/Exam: 08/04/19 00:[address] results reviewed CT shows no acute changes. However she has been on her antibiotics for 6 days now so some mild diverticular changes could have improved. When I went into the patient's room she was eating pizza. She has been having loose stools for about a month no blood in them milk seems to make this worse I have advised her to stay away from milk. She has been off her thyroid medication for a week I will refill this. She is to finish the antibiotics another days worth stay away from milk and see if this makes a difference. She must establish with a local provider. It is recommended that she try probiotics. Departure - Departure Time of Disposition: 00:18 Disposition: Home, Self-Care 01 Clinical Impression: Diarrhea, Abdominal pain of unknown etiology, Hypothyroidism - Discharge Information Referrals: PCP,Unknown [Ordering Only Provider] - Forms: ED Department Discharge Additional Instructions: Return to the emergency room with any questions problems or worsening symptoms. You must establish with a local physician immediately. I sent a prescription to [facility] for your thyroid medication and you were given a dose here in the emergency room. Do not get in the habit of running out of this on a regular basis. Spanish your antibiotics and start probiotics. Sepsis Event Note - Evaluation Sepsis Screening Result: No Definite Risk - Focused Exam Vital Signs: Vital Signs Temp Pulse Resp BP Pulse Ox 08/03/19 21:05 37.0 C 80 16 123/89 96 Date Exam was Performed: 08/04/19 Time Exam was Performed: 00:14 - My Orders Last 24 Hours: My Active Orders 08/03/19 21:35 Abdomen w Cont [CT] Stat 08/03/19 21:45 Lactated Ringers [Ringers, Lactated] 1,000 ml IV ASDIRECTED 08/03/19 21:50 CULTURE URINE [RM] Stat 08/03/19 23:21 Lactated Ringers [Ringers, Lactated] 1,000 ml IV .BOLUS - Assessment/Plan Last 24 Hours: My Active Orders 08/03/19 21:35 Abdomen w Cont [CT] Stat 08/03/19 21:45 Lactated Ringers [Ringers, Lactated] 1,000 ml IV ASDIRECTED 08/03/19 21:50 CULTURE URINE [RM] Stat 08/03/19 23:21 Lactated Ringers [Ringers, Lactated] 1,000 ml IV .BOLUS
[2019-08-03] MEDS ORDERED: Lactated Ringers 1,000 ML IV ONE ×2 (21:36→23:21)
[2019-08-03] MEDS ORDERED: Lactated Ringers 1,000 ML IV SCH (21:45)
[2019-08-04] MEDS ORDERED: Levothyroxine 112 MCG Tab PO ONE (00:16)
--- NOTE | 2019-08-04 06:58 | CT ---
CT abdomen and pelvis Technique: Multiple axial sections were obtained from above the dome of the diaphragm inferiorly through the pubic symphysis. Intravenous contrast and oral contrast has been given. Delayed images were obtained through the bladder. Findings: The visualized lung bases show nothing acute. Central lung mass is seen within the right lung and involving the caudate lobe measuring approximately 5.5 cm. This shows a central scar and appears stable from prior exam suggesting stable area of focal nodular hyperplasia. No additional abnormality is appreciated within the liver. Spleen appears within normal limits. Adrenal glands show no nodule. Pancreas is within normal limits. Kidneys show symmetric contrast enhancement without hydronephrosis or mass. Aorta shows no aneurysm. Appendix is seen which is normal in size. No pelvic mass or adenopathy is seen. No free fluid or inflammatory change is appreciated. Slight increased stool is noted within the colon. Scattered colonic diverticuli are noted without inflammatory change of diverticulitis. Delayed images shows contrast within the distal ureters and within the bladder. Bone window settings were reviewed. Spondylitic defects seen at L5-S1 on both sides. No acute osseous finding is appreciated. Impression: 1. Stable 5.5 cm mass within the central right kidney involving the caudate lobe. This has a typical pattern of a stable area of focal nodular hyperplasia unchanged from previous CT exam. 2. Slight increased stool. Scattered diverticuli within the colon. 3. Spondylitic defects at L5-S1. 4. Nothing acute is appreciated on CT study of the abdomen and pelvis. Diagnostic code #3 This report was dictated in MDT I agree with preliminary report from [facility], finalized on 08/04/19, 12:37 AM Central Time
== END 2019-08-04 00:33 | disposition home or self-care (01) ==
LOC: JD.ED 21:04
DX: R10.32 Left lower quadrant pain (principal); R19.7 Diarrhea, unspecified; E03.9 Hypothyroidism, unspecified; K21.9 Gastro-esophageal reflux disease without esophagitis; J44.9 Chronic obstructive pulmonary disease, unspecified; F41.9 Anxiety disorder, unspecified; F32.9 Major depressive disorder, single episode, unspecified; Z90.49 Acquired absence of other specified parts of digestive tract; F17.210 Nicotine dependence, cigarettes, uncomplicated; Z79.899 Other long term (current) drug therapy
CPT/HCPCS: 36415; 74160; 80053; 81001; 85025; 87086; 96360; 96361; 99284; A9270; J7120; 99283

== ENCOUNTER 2019-08-04 21:15 | Emergency (ER) | payer MEDICAID ==
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
== END 2019-08-04 22:45 | disposition home or self-care (01) ==
LOC: JD.ED 21:15
DX: K21.9 Gastro-esophageal reflux disease without esophagitis (principal); R07.0 Pain in throat; J44.9 Chronic obstructive pulmonary disease, unspecified; F41.9 Anxiety disorder, unspecified; F32.9 Major depressive disorder, single episode, unspecified; E03.9 Hypothyroidism, unspecified; F17.210 Nicotine dependence, cigarettes, uncomplicated; Z90.49 Acquired absence of other specified parts of digestive tract; Z79.899 Other long term (current) drug therapy
CPT/HCPCS: 99283

== ENCOUNTER 2019-09-21 04:59 | Emergency (ER) | payer MEDICAID ==
--- NOTE | 2019-09-21 05:13 | EDM.PDOC ---
ED HPI GENERAL MEDICAL PROBLEM - General Chief Complaint: Skin Complaint Stated Complaint: unable to take nose ring out Time Seen by Provider: 09/21/19 05:12 - History of Present Illness INITIAL COMMENTS - FREE TEXT/NARRATIVE: 53-year-old female presents the emergency room because she cannot get her nose ring out. Has attempted multiple ways to try and get this nose ring out and she cannot the right side of her nose is red painful and inflamed. This started yesterday afternoon. Patient denies any other complaints at this time. It seems that she just cannot get a hold of this. Right Nare Pain Score (Numeric/FACES): 7 - Related Data Allergies Allergy/AdvReac Type Severity Reaction Status Date / Time No Known Allergies Allergy Verified 09/21/19 05:12 Home Meds: Home Meds FLUoxetine [PROzac] 10 mg PO DAILY 06/04/18 [History] Levothyroxine Sodium [Synthroid] 115 mcg PO DAILY 06/04/18 [History] Montelukast [Singulair] 10 mg PO DAILY 06/04/18 [History] Naproxen 500 mg PO Q8H PRN #12 tablet 02/18/19 [Rx] Dexlansoprazole [Dexilant] 30 mg PO QAM #30 cap.mp 08/04/19 [Rx] cephALEXin [Keflex] 500 mg PO Q6H #27 capsule 09/21/19 [Rx] Past Medical History HEENT History: Reports: Impaired Vision Cardiovascular History: Reports: None Respiratory History: Reports: COPD Gastrointestinal History: Reports: Diverticulosis, 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 Musculoskeletal History: Reports: Back Pain, Chronic, Neck Pain, Chronic Neurological History: Reports: Migraines Psychiatric History: Reports: Anxiety, Depression Endocrine/Metabolic History: Reports: Hypothyroidism Hematologic History: Reports: None Immunologic History: Reports: None Oncologic (Cancer) History: Reports: None Dermatologic History: Reports: None - Infectious Disease History Infectious Disease History: Reports: None - Past Surgical History HEENT Surgical History: Reports: Oral Surgery, Tonsillectomy GI Surgical History: Reports: Cholecystectomy Female Surgical History: Reports: Breast Implant, Hysterectomy Social & Family History - Family History Family Medical History: Noncontributory - Caffeine Use Caffeine Use: Reports: Coffee - Living Situation & Occupation Living situation: Reports: , with Spouse Occupation: Unemployed ED ROS GENERAL - Review of Systems Review Of Systems: See Below Constitutional: Reports: No Symptoms Respiratory: Reports: No Symptoms Cardiovascular: Reports: No Symptoms GI/Abdominal: Reports: No Symptoms ED EXAM, SKIN/RASH Exam: See Below Exam Limited By: No Limitations General Appearance: Alert, No Apparent Distress Nose: Other (The patient has an inflamed area surrounding her nose ring on the right side. She has a stud style nose ring in place with a 90 degree curve near the base) Head: Atraumatic, Normocephalic Neck: Normal Inspection, Supple, Non-Tender, Full Range of Motion. No: Lymphadenopathy (L), Lymphadenopathy (R) Respiratory/Chest: Lungs Clear, Normal Breath Sounds, No Accessory Muscle Use Cardiovascular: Regular Rate, Rhythm, No Edema, No Murmur ED SKIN PROCEDURES - Foreign Body Removal Indication:: Patient cannot remove her nose ring and presents to the emergency room to have this done. I discussed the potential risk with this including damage to the nose ring, pain and skin or mucosal damage. The patient wishes to proceed Consent Obtained:: Patient Anesthesia Type: None Complications:: No Comments:: The nose ring was visualized inside the right naris as to the position and curvature of the stud. The nose ring was grasped with a small curved hemostat without difficulty and positioned out without difficulty. There was no exudative material around this but the patient has significant swelling she will be started on Keflex Course - Vital Signs Last Recorded V/S: Last Vital Signs Temp 36.4 C 09/21/19 05:07 Pulse 81 09/21/19 05:07 Resp 20 09/21/19 05:07 BP 115/87 09/21/19 05:07 Pulse Ox 97 09/21/19 05:07 - Orders/Labs/Meds Meds: Medications Discontinued Medications Generic Name Dose Route Start Last Admin Trade Name Freq PRN Reason Stop Dose Admin Cephalexin 500 mg 09/21/19 05:20 Keflex PO 09/21/19 05:21 ONETIME ONE Ibuprofen 600 mg 09/21/19 05:21 Motrin PO 09/21/19 05:22 ONETIME ONE Departure - Departure Time of Disposition: 05:30 Disposition: Home, Self-Care 01 Clinical Impression: Foreign body - Discharge Information Prescriptions: cephALEXin [Keflex] 500 mg PO Q6H #27 capsule Referrals: PCP,None [Primary Care Provider] - Forms: ED Department Discharge Additional Instructions: Return to the emergency room with any questions problems or worsening symptoms. Take the antibiotics as directed, your first dose was given here in the emergency room. Use ibuprofen as needed for discomfort. Sepsis Event Note - Evaluation Sepsis Screening Result: No Definite Risk - Focused Exam Vital Signs: Vital Signs Temp Pulse Resp BP Pulse Ox 09/21/19 05:07 36.4 C 81 20 115/87 97 Date Exam was Performed: 09/21/19 Time Exam was Performed: 05:25
[2019-09-21] MEDS ORDERED: Cephalexin 500 MG Cap PO ONE (05:20)
[2019-09-21] MEDS ORDERED: Ibuprofen 600 MG Tab PO ONE (05:21)
== END 2019-09-21 05:30 | disposition home or self-care (01) ==
LOC: JD.ED 04:59
DX: T17.1XXA Foreign body in nostril, initial encounter (principal); J44.9 Chronic obstructive pulmonary disease, unspecified; F41.9 Anxiety disorder, unspecified; F32.9 Major depressive disorder, single episode, unspecified; E03.9 Hypothyroidism, unspecified; K21.9 Gastro-esophageal reflux disease without esophagitis; Z79.899 Other long term (current) drug therapy
CPT/HCPCS: 30300; 99282; A9270-GY

== ENCOUNTER 2020-02-10 19:25 | Emergency (ER) | payer MEDICAID ==
--- NOTE | 2020-02-10 20:18 | EDM.PDOC ---
ED HPI GENERAL MEDICAL PROBLEM - General Chief Complaint: Abdominal Pain Stated Complaint: DIVERTICULITIS CLINIC SENT FOR CT Time Seen by Provider: 02/10/20 20:17 Source of Information: Reports: Patient History Limitations: Reports: No Limitations - History of Present Illness INITIAL COMMENTS - FREE TEXT/NARRATIVE: Patient is a 54-year-old female who presents to the ED today complaining of left lower quadrant abdominal pain. This started approximate 1 week ago. States she has a history of diverticulitis and the symptoms she is currently experiencing are similar. She has had some blood in her urine with some diarrhea and constipation. Pain waxes and wanes but has increased as of today. No dysuria, hematuria, nausea or vomiting or documented fever. She is had a poor appetite. No history of sepsis or abscess. She does feel bloated. She was seen at the [facility] today at 1330 with suggestions to come to the ED for further evaluation. Patient went home and slept and has returned for the imaging. Last episode was approximately 6 months ago. She has a history of GERD and also hypothyroidism. She denies being with history of hysterectomy. She smokes half pack per day and denies any alcohol or drug use. Left Lower Abdomen Pain Score (Numeric/FACES): 10 - Related Data Allergies Allergy/AdvReac Type Severity Reaction Status Date / Time No Known Allergies Allergy Verified 02/10/20 19:39 Home Meds: Home Meds FLUoxetine [PROzac] 10 mg PO DAILY 06/04/18 [History] Levothyroxine Sodium [Synthroid] 115 mcg PO DAILY 06/04/18 [History] Montelukast [Singulair] 10 mg PO DAILY 06/04/18 [History] Naproxen 500 mg PO Q8H PRN #12 tablet 02/18/19 [Rx] Dexlansoprazole [Dexilant] 30 mg PO QAM #30 08/04/19 [Rx] Acetaminophen/HYDROcodone [[place] 325-5 MG] 1 tab PO Q6H PRN #10 tablet 02/10/20 [Rx] Amoxicillin/Potassium Clav [Augmentin 875-125 Tablet] 1 each PO BID #20 tablet 02/10/20 [Rx] Past Medical History HEENT History: Reports: Impaired Vision Cardiovascular History: Reports: None Respiratory History: Reports: COPD Gastrointestinal History: Reports: Diverticulosis, 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 Musculoskeletal History: Reports: Back Pain, Chronic, Neck Pain, Chronic Neurological History: Reports: Migraines Psychiatric History: Reports: Anxiety, Depression Endocrine/Metabolic History: Reports: Hypothyroidism Hematologic History: Reports: None Immunologic History: Reports: None Oncologic (Cancer) History: Reports: None Dermatologic History: Reports: None - Infectious Disease History Infectious Disease History: Reports: None - Past Surgical History HEENT Surgical History: Reports: Oral Surgery, Tonsillectomy GI Surgical History: Reports: Cholecystectomy Female Surgical History: Reports: Breast Implant, Hysterectomy Social & Family History - Family History Family Medical History: Noncontributory - Tobacco Use Smoking Status *Q: Current Every Day Smoker Years of Tobacco use: 30 Packs/Tins Daily: 10 - Caffeine Use Caffeine Use: Reports: None - Recreational Drug Use Recreational Drug Use: No - Living Situation & Occupation Living situation: Reports: , with Spouse Occupation: Unemployed ED ROS GENERAL - Review of Systems Review Of Systems: Comprehensive ROS is negative, except as noted in HPI. ED EXAM, GI/ABD - Physical Exam Exam: See Below Exam Limited By: No Limitations General Appearance: Alert, WD/WN, No Apparent Distress Ears: Hearing Grossly Normal Nose: Normal Inspection Throat/Mouth: Normal Inspection, Normal Oropharynx, Normal Voice, No Airway Compromise Head: Atraumatic, Normocephalic Neck: Normal Inspection, Supple Respiratory/Chest: No Respiratory Distress, Lungs Clear, Normal Breath Sounds, No Accessory Muscle Use, Chest Non-Tender Cardiovascular: Normal Peripheral Pulses, Regular Rate, Rhythm GI/Abdominal Exam: Normal Bowel Sounds, Soft, No Organomegaly, No Distention, Tender (LLQ) (Female) Exam: Deferred Back Exam: Normal Inspection, Full Range of Motion. No: CVA Tenderness (L), CVA Tenderness (R) Extremities: Normal Inspection Neurological: Alert, Oriented, CN II-XII Intact, Normal Cognition, No Motor/Sensory Deficits Psychiatric: Normal Affect, Normal Mood Course - Vital Signs Last Recorded V/S: Last Vital Signs Temp 98.1 F 02/10/20 19:36 Pulse 78 02/10/20 19:36 Resp 18 02/10/20 19:36 BP 111/79 02/10/20 19:36 Pulse Ox 94 L 02/10/20 19:36 - Orders/Labs/Meds Orders: Active Orders 24 hr Category Date Time Status Abdomen Pelvis w Cont [CT] Stat Exams 02/10/20 21:02 Taken Peripheral IV Insertion Adult [OM.PC] Routine Oth 02/10/20 21:02 Ordered Labs: Laboratory Tests 02/10/20 02/10/20 02/10/20 Range/Units 21:35 21:35 21:58 WBC 6.98 (3.98-10.04) K/mm3 RBC 4.61 (3.98-5.22) M/mm3 Hgb 13.6 D (11.2-15.7) gm/dl Hct 41.6 (34.1-44.9) % MCV 90.2 (79.4-94.8) fl MCH 29.5 (25.6-32.2) pg MCHC 32.7 (32.2-35.5) g/dl RDW Std Deviation 40.8 (36.4-46.3) fL Plt Count 333 (182-369) K/mm3 MPV 10.7 (9.4-12.3) fl Neutrophils % (Manual) 60 (40-60) % Band Neutrophils % 0 (0-10) % Lymphocytes % (Manual) 28 (20-40) % Atypical Lymphs % 0 % Monocytes % (Manual) 8 (2-10) % Eosinophils % (Manual) 4 (0.7-5.8) % Basophils % (Manual) 0 L (0.1-1.2) Platelet Estimate Adequate RBC Morph Comment Normal Sodium 139 (136-145) mEq/L Potassium 4.0 (3.5-5.1) mEq/L Chloride 105 (98-107) mEq/L Carbon Dioxide 27 (21-32) mEq/L Anion Gap 11.0 (5-15) BUN 19 H (7-18) mg/dL Creatinine 0.7 (0.55-1.02) mg/dL Est Cr Clr Drug Dosing 78.09 mL/min Estimated GFR (MDRD) > 60 (>60) mL/min BUN/Creatinine Ratio 27.1 H (14-18) Glucose 107 H (74-106) mg/dL Calcium 8.3 L (8.5-10.1) mg/dL Total Bilirubin 0.1 L (0.2-1.0) mg/dL AST 16 (15-37) U/L ALT 26 (14-59) U/L Alkaline Phosphatase 134 H (46-116) U/L C-Reactive Protein 2.4 H* (<1.0) mg/dL Total Protein 6.7 (6.4-8.2) g/dl Albumin 3.1 L (3.4-5.0) g/dl Globulin 3.6 gm/dL Albumin/Globulin Ratio 0.9 L (1-2) Lipase 136 (73-393) U/L Urine Color Yellow (Yellow) Urine Appearance Clear (Clear) Urine pH 5.5 (5.0-8.0) Ur Specific [place] 1.025 (1.005-1.030) Urine Protein Negative (Negative) Urine Glucose (UA) Negative (Negative) Urine Ketones Negative (Negative) Urine Occult Blood Negative (Negative) Urine Nitrite Negative (Negative) Urine Bilirubin Negative (Negative) Urine Urobilinogen 0.2 (0.2-1.0) Ur Leukocyte Esterase Negative (Negative) Urine RBC 0-5 (0-5) /hpf Urine WBC 0-5 (0-5) /hpf Ur Squamous Epith Cells 5-10 H (0-5) /hpf Urine Bacteria Few (FEW) /hpf Urine Mucus Few (FEW) /hpf Meds: Medications Discontinued Medications Generic Name Dose Route Start Last Admin Trade Name Freq PRN Reason Stop Dose Admin Amoxicillin/Clavulanate Potassium 1 tab 02/10/20 22:28 02/10/20 22:38 Augmentin 875 Mg/125 Mg PO 02/10/20 22:29 1 tab ONETIME ONE Administration Hydromorphone HCl 0.5 mg 02/10/20 21:02 02/10/20 21:17 Dilaudid IVPUSH 02/10/20 21:03 0.5 mg ONETIME ONE Administration Sodium Chloride 1,000 mls @ 250 mls/hr 02/10/20 21:01 02/10/20 21:17 Normal Saline IV 02/11/20 01:00 250 mls/hr ONETIME ONE Administration Iopamidol 100 ml 02/10/20 21:59 02/10/20 22:25 Isovue-300 (61%) IVPUSH 02/10/20 22:00 100 ml ONETIME ONE Administration Metronidazole 500 mg 02/10/20 22:23 Flagyl PO 02/10/20 22:24 ONETIME ONE Ondansetron HCl 4 mg 02/10/20 21:01 02/10/20 21:17 Zofran IVPUSH 02/10/20 21:02 4 mg ONETIME ONE Administration Sodium Chloride 10 ml 02/10/20 21:02 02/10/20 21:18 Saline Flush FLUSH 10 ml ASDIRECTED PRN Administration Keep Vein Open Sodium Chloride 10 ml 02/10/20 21:59 02/10/20 22:25 Saline Flush FLUSH 02/10/20 22:00 10 ml ONETIME ONE Administration - Re-Assessments/Exams Free Text/Narrative Re-Assessment/Exam: Vital signs stable as document. Pressure 111/79, temperature is 98.1, heart rate 78, respiratory 18, O2 sats 94% on room air. Initial labs and studies will include: CBC, CHEM 14, lipase, urinalysis, and CRP. IV established with normal saline, Zofran, and Dilaudid. CT of the abdomen and pelvis will be obtained with contrast. 2205 Not all labs have come back nor has the CT report. Patient is wishing to leave and is quite irritated how long this is taking in the E.D. Patient has been here for approximately 3 hours. Of note she was initially seen at [facility] today at 1330 and was advised to come to the ED for further imaging but the patient opted to go home and take a nap. CT of the abdomen and pelvis report came in while I was talking with her. Patient has acute mild uncomplicated diverticulitis involving a small segment of the descending colon. Incidental findings as detailed above. Labs have resulted. CBC and C14 was essentially normal. CRP 2.4. Lipase 136. Urinalysis was negative. I will discharge patient home with Augmentin 1 tab twice a day for 10 days. [place] 1 tab every 6 hours as needed for pain. Discharge instructions as documented. Departure - Departure Time of Disposition: 22:29 Disposition: Home, Self-Care 01 Condition: Good Clinical Impression: Diverticulitis - Discharge Information Prescriptions: Amoxicillin/Potassium Clav [Augmentin 875-125 Tablet] 1 each PO BID #20 tablet Acetaminophen/HYDROcodone [[place] 325-5 MG] 1 tab PO Q6H PRN #10 tablet PRN Reason: Pain (Severe 7-10) Instructions: Diverticulitis Referrals: PCP,None [Primary Care Provider] - Forms: ED Department Discharge Additional Instructions: You have mild uncomplicated diverticulitis. Treatment will consist of Augmentin 1 tab twice a day for 10 days. Stick with a clear liquid diet for the next 48 hours. Thereafter low residue until pain resolves. Suggest taking a [id number] probiotic for the next month. For mild to moderate pain take Tylenol and ibuprofen in alternating fashion. For severe pain take [place] 1 tab every 6 hours as directed[address] not drive this evening since receiving a sedative medication. Return to the ED if you develop any new or worsening symptoms. Followup with PCP in the next 3 to 5 days as needed for reevaluation. Sepsis Event Note (ED) - Evaluation Sepsis Screening Result: No Definite Risk - Focused Exam Vital Signs: Vital Signs Temp Pulse Resp BP Pulse Ox 02/10/20 19:36 98.1 F 78 18 111/79 94 L - My Orders Last 24 Hours: My Active Orders 02/10/20 21:02 Abdomen Pelvis w Cont [CT] Stat Peripheral IV Insertion Adult [OM.PC] Routine - Assessment/Plan Last 24 Hours: My Active Orders 02/10/20 21:02 Abdomen Pelvis w Cont [CT] Stat Peripheral IV Insertion Adult [OM.PC] Routine
[2020-02-10] MEDS ORDERED: Ondansetron 4 MG/2 ML SDV IVPUSH ONE (21:01)
[2020-02-10] MEDS ORDERED: Sodium Chloride 0.9% 1,000 ML IV ONE (21:01)
[2020-02-10] MEDS ORDERED: HYDROmorphone 0.5 MG/0.5 ML Syringe IVPUSH ONE (21:02)
[2020-02-10] MEDS ORDERED: Sodium Chloride 0.9% 10 ML Syringe FLUSH PRN (21:02)
[2020-02-10] MEDS ORDERED: Iopamidol 612 MG/ML 100 ML Bottle IVPUSH ONE (21:59)
[2020-02-10] MEDS ORDERED: Sodium Chloride 0.9% 10 ML Syringe FLUSH ONE (21:59)
[2020-02-10] MEDS ORDERED: metroNIDAZOLE 500 MG Tab PO ONE (22:23)
[2020-02-10] MEDS ORDERED: Amoxicillin/Clavulanate K 875-125 MG Tab PO ONE (22:28)
--- NOTE | 2020-03-12 13:53 | CT ---
"PROCEDURE INFORMATION: Exam: CT Abdomen And Pelvis With Contrast Exam date and time: 02/10/2020 9:25 PM Age: 54 years old Clinical indication: Abdominal pain; Generalized TECHNIQUE: Imaging protocol: Computed tomography of the abdomen and pelvis with intravenous contrast. COMPARISON: CT Abdomen w Cont 08/03/2019 11:02 PM FINDINGS: Liver: No mass. Gallbladder and bile ducts: Cholecystectomy. No biliary ductal dilatation. Pancreas: Normal. No ductal dilation. Spleen: Normal. No splenomegaly. Adrenal glands: Normal. No mass. Kidneys and ureters: Normal. No hydronephrosis. Stomach and bowel: Pericolonic edema/inflammation adjacent to a diverticulum in the mid descending colon, no significant bowel wall thickening. No obstruction. Multiple colonic diverticuli. Appendix: No evidence of appendicitis. Intraperitoneal space: No free fluid or pneumoperitoneum. No abscess. Vasculature: No abdominal aortic aneurysm. Lymph nodes: No significant adenopathy. Urinary bladder: Unremarkable as visualized. Reproductive: Hysterectomy. Bones/joints: No acute findings. L5 spondylolysis. Soft tissues: Unremarkable. IMPRESSION: Acute descending diverticulitis. RAFAELA FULLER | Final Radiology Report CONFIDENTIALITY STATEMENT This report is intended only for use by the referring physician, and only in accordance with law. If you received this in error, call [phone]. Page 2 of 2 Thank you for allowing us to participate in the care of your patient. Dictated and Authenticated by: Noah Willard MD 03/11/2020 3:34 PM Central Time ([place] & [place]) KEVIN"
== END 2020-02-10 22:43 | disposition home or self-care (01) ==
LOC: JD.ED 19:25
DX: K57.32 Diverticulitis of large intestine without perforation or abscess without bleeding (principal); J44.9 Chronic obstructive pulmonary disease, unspecified; E03.9 Hypothyroidism, unspecified; F32.9 Major depressive disorder, single episode, unspecified; F41.9 Anxiety disorder, unspecified; F17.210 Nicotine dependence, cigarettes, uncomplicated; Z90.49 Acquired absence of other specified parts of digestive tract; Z90.710 Acquired absence of both cervix and uterus; Z79.899 Other long term (current) drug therapy
CPT/HCPCS: 36415; 74177; 80053; 81001; 83690; 85007; 85027; 86140; 96361; 96374; 96375; 99284; A9270; J1170; J2405; J7030; Q9967

== ENCOUNTER 2020-10-18 21:04 | Emergency (ER) | payer MEDICAID ==
--- NOTE | 2020-10-18 21:53 | EDM.PDOC ---
ED HPI GENERAL MEDICAL PROBLEM - General Chief Complaint: Behavioral/Psych Stated Complaint: overheating/feels off Time Seen by Provider: 10/18/20 21:44 - History of Present Illness INITIAL COMMENTS - FREE TEXT/NARRATIVE: 55-year-old female presents the emergency room not feeling right. Patient has a hard time describing she is not feeling right she has been taking these black diet pills for the last week or so that somebody has been giving her. And she says she is just not right at times she is tingly all over her upper extremities. And she has some lower abdominal discomfort. She denies any fevers or chills no breathing difficulties no shortness of breath. Generalized Pain Score (Numeric/FACES): 5 - Related Data Allergies Allergy/AdvReac Type Severity Reaction Status Date / Time No Known Allergies Allergy Verified 02/10/20 19:39 Home Meds: Home Meds FLUoxetine [PROzac] 10 mg PO DAILY 06/04/18 [History] Levothyroxine Sodium [Synthroid] 115 mcg PO DAILY 06/04/18 [History] Montelukast [Singulair] 10 mg PO DAILY 06/04/18 [History] Naproxen 500 mg PO Q8H PRN #12 tablet 02/18/19 [Rx] Dexlansoprazole [Dexilant] 30 mg PO QAM #30 08/04/19 [Rx] Acetaminophen/HYDROcodone [[place] 325-5 MG] 1 tab PO Q6H PRN #10 tablet 02/10/20 [Rx] Past Medical History HEENT History: Reports: Impaired Vision Cardiovascular History: Reports: None Respiratory History: Reports: COPD Gastrointestinal History: Reports: Diverticulosis, GERD 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 Musculoskeletal History: Reports: Back Pain, Chronic, Neck Pain, Chronic Neurological History: Reports: Migraines Psychiatric History: Reports: Anxiety, Depression Endocrine/Metabolic History: Reports: Hypothyroidism Hematologic History: Reports: None Immunologic History: Reports: None Oncologic (Cancer) History: Reports: None Dermatologic History: Reports: None - Infectious Disease History Infectious Disease History: Reports: None - Past Surgical History HEENT Surgical History: Reports: Oral Surgery, Tonsillectomy GI Surgical History: Reports: Cholecystectomy Female Surgical History: Reports: Breast Implant, Hysterectomy Social & Family History - Family History Family Medical History: No Pertinent Family History - Tobacco Use Tobacco Use Status *Q: Current Every Day Tobacco User Years of Tobacco use: 20 Packs/Tins Daily: 1 - Caffeine Use Caffeine Use: Reports: Coffee, Soda, Tea - Recreational Drug Use Recreational Drug Use: No - Living Situation & Occupation Living situation: Reports: , with Spouse Occupation: Unemployed ED ROS GENERAL - Review of Systems Review Of Systems: See Below Constitutional: Reports: No Symptoms. Denies: Fever, Chills HEENT: Reports: No Symptoms Respiratory: Reports: No Symptoms Cardiovascular: Reports: No Symptoms Endocrine: Reports: No Symptoms GI/Abdominal: Reports: Abdominal Pain. Denies: Constipation, Diarrhea, Nausea, Vomiting : Reports: No Symptoms, Discharge, Dysuria Musculoskeletal: Reports: No Symptoms Skin: Reports: No Symptoms Neurological: Reports: Confusion. Denies: Seizure, Syncope Psychiatric: Reports: No Symptoms, Anxiety, Confusion. Denies: Depression, Homicidal Ideation, Suicidal Ideation Hematologic/Lymphatic: Reports: No Symptoms Immunologic: Reports: No Symptoms ED EXAM, GENERAL - Physical Exam Exam: See Below Exam Limited By: Other (She appears to be under the influence of something) Eye Exam: Right Eye: Papilledema, Bilateral Eye: PERRL Ears: Normal External Exam, Normal Canal, Hearing Grossly Normal, Normal TMs Nose: Normal Inspection, Normal Mucosa, No Blood Throat/Mouth: Normal Inspection, Normal Lips, Normal Teeth, Normal Gums, Normal Oropharynx, Normal Voice, No Airway Compromise Head: Atraumatic, Normocephalic Neck: Normal Inspection, Supple, Non-Tender, Full Range of Motion. No: Lymphadenopathy (L), Lymphadenopathy (R) Respiratory/Chest: No Respiratory Distress, Lungs Clear, Normal Breath Sounds Cardiovascular: Regular Rate, Rhythm, No Edema, No Murmur GI/Abdominal: Normal Bowel Sounds, Soft, Non-Tender Back Exam: Normal Inspection. No: CVA Tenderness (L), CVA Tenderness (R) Neurological: Disoriented, Slow to Respond Psychiatric: Normal Affect, Normal Mood Skin Exam: Warm, Dry, Intact Course - Vital Signs Last Recorded V/S: Last Vital Signs Temp 36.2 C 10/18/20 21:21 Pulse 86 10/18/20 21:21 Resp 20 10/18/20 21:21 BP 153/90 H 10/18/20 21:21 Pulse Ox 97 10/18/20 21:21 - Orders/Labs/Meds Orders: Active Orders 24 hr Category Date Time Status CBC WITH AUTO DIFF [HEME] Stat Lab 10/18/20 21:53 Ordered COMPREHENSIVE METABOLIC PN,CMP [CHEM] Stat Lab 10/18/20 21:53 Ordered DRUG SCREEN, URINE [URCHEM] Stat Lab 10/18/20 21:53 Ordered ETHANOL BLOOD MEDICAL [CHEM] Stat Lab 10/18/20 21:53 Ordered TSH [CHEM] Stat Lab 10/18/20 21:53 Ordered UA RFX ALEXANDRE AND CULT IF INDIC [URIN] Stat Lab 10/18/20 21:53 Ordered Lactated Ringers [Ringers, Lactated] 1,000 ml Med 10/18/20 21:56 Active IV .BOLUS Lactated Ringers [Ringers, Lactated] 1,000 ml Med 10/18/20 22:00 Active IV ASDIRECTED Medication Orders Lactated Ringer's (Ringers, Lactated) 1,000 mls @ 999 mls/hr IV .BOLUS ONE Stop: 10/18/20 22:56 Lactated Ringer's (Ringers, Lactated) 1,000 mls @ 150 mls/hr IV ASDIRECTED [facility] Meds: Medications Generic Name Dose Route Start Last Admin Trade Name Freq PRN Reason Stop Dose Admin Lactated Ringer's 1,000 mls @ 999 mls/hr 10/18/20 21:56 Ringers, Lactated IV 10/18/20 22:56 .BOLUS ONE Lactated Ringer's 1,000 mls @ 150 mls/hr 10/18/20 22:00 Ringers, Lactated IV ASDIRECTED CHRISTINA Discontinued Medications Generic Name Dose Route Start Last Admin Trade Name Freq PRN Reason Stop Dose Admin Lorazepam 1 mg 10/18/20 21:56 Lorazepam 2 Mg/Ml Sdv IVPUSH 10/18/20 21:57 ONETIME ONE Departure - Departure Time of Disposition: 22:10 Disposition: Eloped 07 Clinical Impression: Medication reaction - Discharge Information Referrals: PCP,None [Primary Care Provider] - Forms: ED Department Discharge Sepsis Event Note (ED) - Evaluation Sepsis Screening Result: No Definite Risk - Focused Exam Vital Signs: Vital Signs Temp Pulse Resp BP Pulse Ox 10/18/20 21:21 36.2 C 86 20 153/90 H 97 - My Orders Last 24 Hours: My Active Orders 10/18/20 21:53 CBC WITH AUTO DIFF [HEME] Stat COMPREHENSIVE METABOLIC PN,CMP [CHEM] Stat DRUG SCREEN, URINE [URCHEM] Stat ETHANOL BLOOD MEDICAL [CHEM] Stat TSH [CHEM] Stat UA RFX ALEXANDRE AND CULT IF INDIC [URIN] Stat 10/18/20 21:56 Lactated Ringers [Ringers, Lactated] 1,000 ml IV .BOLUS 10/18/20 22:00 Lactated Ringers [Ringers, Lactated] 1,000 ml IV ASDIRECTED - Assessment/Plan Last 24 Hours: My Active Orders 10/18/20 21:53 CBC WITH AUTO DIFF [HEME] Stat COMPREHENSIVE METABOLIC PN,CMP [CHEM] Stat DRUG SCREEN, URINE [URCHEM] Stat ETHANOL BLOOD MEDICAL [CHEM] Stat TSH [CHEM] Stat UA RFX ALEXANDRE AND CULT IF INDIC [URIN] Stat 10/18/20 21:56 Lactated Ringers [Ringers, Lactated] 1,000 ml IV .BOLUS 10/18/20 22:00 Lactated Ringers [Ringers, Lactated] 1,000 ml IV ASDIRECTED
[2020-10-18] MEDS ORDERED: LORazepam 2 MG/ML SDV IVPUSH ONE (21:56)
[2020-10-18] MEDS ORDERED: Lactated Ringers 1,000 ML IV ONE (21:56)
[2020-10-18] MEDS ORDERED: Lactated Ringers 1,000 ML IV SCH (22:00)
== END 2020-10-18 22:13 | disposition left against medical advice (07) ==
LOC: JD.ED 21:04
DX: R10.30 Lower abdominal pain, unspecified (principal); R20.2 Paresthesia of skin; J44.9 Chronic obstructive pulmonary disease, unspecified; K21.9 Gastro-esophageal reflux disease without esophagitis; Z72.0 Tobacco use; Z79.899 Other long term (current) drug therapy; T50.995A Adverse effect of other drugs, medicaments and biological substances, initial encounter
CPT/HCPCS: 99283

== ENCOUNTER 2020-10-18 22:34 | Emergency (ER) | payer MEDICAID | END 2020-10-18 23:39 | LOC: JD.ED 22:34 | DX: Z53.21 Procedure and treatment not carried out due to patient leaving prior to being seen by health care provider (principal) ==

== ENCOUNTER 2020-10-19 20:26 | Emergency (ER) | payer MEDICAID ==
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
== END 2020-10-19 21:49 | disposition left against medical advice (07) ==
LOC: JD.ED 20:26
DX: R10.2 Pelvic and perineal pain (principal); Z76.5 Malingerer [conscious simulation]; J44.9 Chronic obstructive pulmonary disease, unspecified; K21.9 Gastro-esophageal reflux disease without esophagitis; E03.9 Hypothyroidism, unspecified; Z72.0 Tobacco use
CPT/HCPCS: 99282; 99283

== ENCOUNTER 2020-12-20 14:55 | Emergency (ER) | payer MEDICAID ==
--- NOTE | 2020-12-20 15:42 | EDM.PDOC ---
ED HPI GENERAL MEDICAL PROBLEM - General Chief Complaint: Bite:Animal, Insect Stated Complaint: R ARM SKIN COMPLAINT Time Seen by Provider: 12/20/20 15:11 Source of Information: Reports: Patient, RN Notes Reviewed History Limitations: Reports: No Limitations - History of Present Illness INITIAL COMMENTS - FREE TEXT/NARRATIVE: Patient is a 55-year-old female presenting to the emergency department with complaints of bee sting to the medial aspect of her right elbow. Reports 2 days ago she was stung by a bee and has been getting progressively more swollen. She used some mzji-ssz-htrffuw Benadryl last evening but has not not used anything else [id number] for treatment. Denies any fever, chills, or shortness of breath. Right Elbow Pain Score (Numeric/FACES): 8 - Related Data Allergies Allergy/AdvReac Type Severity Reaction Status Date / Time No Known Allergies Allergy Verified 12/20/20 15:10 Home Meds: Home Meds FLUoxetine [PROzac] 10 mg PO DAILY 06/04/18 [History] Levothyroxine Sodium [Synthroid] 115 mcg PO DAILY 06/04/18 [History] Montelukast [Singulair] 10 mg PO DAILY 06/04/18 [History] Dexlansoprazole [Dexilant] 30 mg PO QAM #30 cap. 08/04/19 [Rx] cephALEXin [Keflex] 500 mg PO Q6H #20 cap 12/20/20 [Rx] diphenhydrAMINE HCl/Zinc Acet [Benadryl Itch Stopping Crm] 28.3 gm TP BID #1 cream..g. 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 Musculoskeletal History: Reports: Back Pain, Chronic, Neck Pain, Chronic Neurological History: Reports: Migraines Psychiatric History: Reports: Anxiety, Depression Endocrine/Metabolic History: Reports: Hypothyroidism Hematologic History: Reports: None Immunologic History: Reports: None Oncologic (Cancer) History: Reports: None Dermatologic History: Reports: None - Infectious Disease History Infectious Disease History: Reports: None - Past Surgical History HEENT Surgical History: Reports: Oral Surgery, Tonsillectomy GI Surgical History: Reports: Cholecystectomy Female Surgical History: Reports: Breast Implant, Hysterectomy Social & Family History - Family History Family Medical History: No Pertinent Family History - Tobacco Use Tobacco Use Status *Q: Current Every Day Tobacco User Years of Tobacco use: 20 Packs/Tins Daily: 0.5 - Caffeine Use Caffeine Use: Reports: Coffee - Recreational Drug Use Recreational Drug Use: No - Living Situation & Occupation Living situation: Reports: , with Spouse Occupation: Unemployed ED ROS GENERAL - Review of Systems Review Of Systems: Comprehensive ROS is negative, except as noted in HPI. ED EXAM, ANIMAL BITE - Physical Exam Exam: See Below Exam Limited By: No Limitations General Appearance: Alert, WD/WN, No Apparent Distress Respiratory/Chest: No Respiratory Distress, Lungs Clear, Normal Breath Sounds, No Accessory Muscle Use, Chest Non-Tender Cardiovascular: Normal Peripheral Pulses, Regular Rate, Rhythm, No Edema, No Gallop, No JVD, No Murmur, No Rub Extremities: Other (4 cm area of induration with surrounding erythema to the medial aspect of the right elbow. Scattered scabs which the patient states are due to scratching.) Neurological: Alert, Oriented, CN II-XII Intact, Normal Cognition, Normal Gait, Normal Reflexes, No Motor/Sensory Deficits Psychiatric: Normal Affect, Normal Mood Skin Exam: Warm/Dry, DRY, I, Normal Color, NR Course - Vital Signs Last Recorded V/S: Last Vital Signs Temp 97.3 F 12/20/20 15:06 Pulse 81 12/20/20 15:06 Resp 16 12/20/20 15:06 BP 115/76 12/20/20 15:06 Pulse Ox 98 12/20/20 15:06 - Re-Assessments/Exams Free Text/Narrative Re-Assessment/Exam: Patient is a 55-year-old female presenting to the emergency department with complaints of pain and swelling to the medial aspect of her right elbow after being stung by a bee 2 days ago. On exam, patient has 4 cm area of induration with surrounding erythema to the medial aspect of her elbow. This appears to be localized reaction, however could represent early onset of cellulitis. She will be started on Keflex as well as prednisone. I also sent sent prescription for Benadryl cream to apply topically. Recommend intermittent icing. She should follow-up in the clinic on Wednesday if symptoms are not improving. Discussed return precautions. Discharge instructions as documented. Departure - Departure Time of Disposition: 15:43 Disposition: Home, Self-Care 01 Condition: Good Clinical Impression: Insect bite Qualifiers: Encounter type: initial encounter Site of insect bite: upper arm Laterality: right Qualified Code(s): S40.861A - Insect bite (nonvenomous) of right upper arm, initial encounter; W57.XXXA - Bitten or stung by nonvenomous insect and other nonvenomous arthropods, initial encounter - Discharge Information Prescriptions: diphenhydrAMINE HCl/Zinc Acet [Benadryl Itch Stopping Crm] 28.3 gm TP BID #1 cream..g. cephALEXin [Keflex] 500 mg PO Q6H #20 cap predniSONE [Prednisone] 20 mg PO ASDIRECTED #15 tablet Instructions: Bee, Wasp, or Hornet Sting, Adult Referrals: PCP,None [Primary Care Provider] - Forms: ED Department Discharge Additional Instructions: You were seen in the emergency department today for evaluation of pain and swelling to your right elbow after being stung by a bee 2 days ago. It appears that you have a localized reaction, however it is difficult to exclude possible early infection. You have been started on cephalexin which is an antibiotic as well as prednisone for inflammation. Take these as prescribed. Prescription is also been sent for Benadryl cream. Apply this twice daily. You may use uifc-zuo-zipdwqs antihistamines as well such as Benadryl, Claudine, or Claritin. Recommend icing the area for 20 minutes every 2 hours. Do not apply ice directly to the skin. You should see improvement in your symptoms over the next few days. If symptoms or not improved by Wednesday, recommend follow-up in the clinic. Return to ER for any new or worsening symptoms. Sepsis Event Note (ED) - Evaluation Sepsis Screening Result: No Definite Risk - Focused Exam Vital Signs: Vital Signs Temp Pulse Resp BP Pulse Ox 12/20/20 15:06 97.3 F 81 16 115/76 98
== END 2020-12-20 15:52 | disposition home or self-care (01) ==
LOC: JD.ED 14:55
DX: S40.861A Insect bite (nonvenomous) of right upper arm, initial encounter (principal); J44.9 Chronic obstructive pulmonary disease, unspecified; K21.9 Gastro-esophageal reflux disease without esophagitis; E03.9 Hypothyroidism, unspecified; Z79.899 Other long term (current) drug therapy; Z72.0 Tobacco use; W57.XXXA Bitten or stung by nonvenomous insect and other nonvenomous arthropods, initial encounter
CPT/HCPCS: 99282; 99283

== ENCOUNTER 2021-01-16 11:36 | Emergency (ER) | payer MEDICAID ==
[2021-01-16] MEDS ORDERED: Ketorolac 60 MG/2 ML SDV IM ONE (12:21)
[2021-01-16] MEDS ORDERED: predniSONE 10 MG Tab PO ONE (12:22)
--- NOTE | 2021-01-16 12:23 | EDM.PDOC ---
ED HPI GENERAL MEDICAL PROBLEM - General Chief Complaint: Bite:Animal, Insect Stated Complaint: BEE STING Time Seen by Provider: 01/16/21 11:53 Source of Information: Reports: Patient, RN Notes Reviewed History Limitations: Reports: No Limitations - History of Present Illness INITIAL COMMENTS - FREE TEXT/NARRATIVE: Patient is a 55-year-old female presenting to the emergency department with complaints of pain and swelling to the site of a bee sting. Reports that she was stung yesterday. Denies any shortness of breath or throat tightness. She has not taken anything [id number] for treatment. Right Upper Leg Pain Score (Numeric/FACES): 8 - Related Data Allergies Allergy/AdvReac Type Severity Reaction Status Date / Time No Known Allergies Allergy Verified 01/16/21 11:46 Home Meds: Home Meds FLUoxetine [PROzac] 10 mg PO DAILY 06/04/18 [History] Levothyroxine Sodium [Synthroid] 115 mcg PO DAILY 06/04/18 [History] Montelukast [Singulair] 10 mg PO DAILY 06/04/18 [History] Dexlansoprazole [Dexilant] 30 mg PO QAM #30 08/04/19 [Rx] diphenhydrAMINE HCl/Zinc Acet [Benadryl Itch Stopping Crm] 28.3 gm TP BID #1 cream..g. 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 Musculoskeletal History: Reports: Back Pain, Chronic, Neck Pain, Chronic Neurological History: Reports: Migraines Psychiatric History: Reports: Anxiety, Depression Endocrine/Metabolic History: Reports: Hypothyroidism Hematologic History: Reports: None Immunologic History: Reports: None Oncologic (Cancer) History: Reports: None Dermatologic History: Reports: None - Infectious Disease History Infectious Disease History: Reports: None - Past Surgical History HEENT Surgical History: Reports: Oral Surgery, Tonsillectomy GI Surgical History: Reports: Cholecystectomy Female Surgical History: Reports: Breast Implant, Hysterectomy Social & Family History - Family History Family Medical History: No Pertinent Family History - Tobacco Use Tobacco Use Status *Q: Current Every Day Tobacco User Years of Tobacco use: 1 Packs/Tins Daily: 20 - Caffeine Use Caffeine Use: Reports: Coffee - Recreational Drug Use Recreational Drug Use: No - Living Situation & Occupation Living situation: Reports: , with Spouse Occupation: Unemployed ED ROS GENERAL - Review of Systems Review Of Systems: Comprehensive ROS is negative, except as noted in HPI. ED EXAM, ANIMAL BITE - Physical Exam Exam: See Below Exam Limited By: No Limitations General Appearance: Alert, WD/WN, No Apparent Distress Extremities: Other (Large area of erythema to the medial aspect of the right lower thigh. No drainage or open areas.) Neurological: Alert, Oriented, CN II-XII Intact, Normal Cognition, Normal Gait, Normal Reflexes, No Motor/Sensory Deficits Psychiatric: Normal Affect, Normal Mood Course - Vital Signs Last Recorded V/S: Last Vital Signs Temp 97.9 F 01/16/21 11:44 Pulse 89 01/16/21 11:44 Resp 16 01/16/21 11:44 BP 124/85 01/16/21 11:44 Pulse Ox 99 01/16/21 11:44 - Re-Assessments/Exams Free Text/Narrative Re-Assessment/Exam: Patient is a 55-year-old female presenting to the emergency department complains of a large localized reaction to bee sting yesterday. On exam, she has a large area of erythema to the medial aspect of her right lower thigh. Patient will be given an injection of Toradol as well as prednisone 40 mg orally. I will send prescription for prednisone 20 mg for her to take tomorrow. Recommend tgza-ztz-[id number] antihistamines and cold compresses. Discharge instructions as documented. Departure - Departure Time of Disposition: 12:19 Disposition: Home, Self-Care 01 Condition: Good Clinical Impression: Insect bite Qualifiers: Encounter type: initial encounter Site of insect bite: thigh Laterality: right Qualified Code(s): S70.361A - Insect bite (nonvenomous), right thigh, initial encounter; W57.XXXA - Bitten or stung by nonvenomous insect and other nonvenomous arthropods, initial encounter - Discharge Information *PRESCRIPTION DRUG MONITORING PROGRAM REVIEWED*: No *COPY OF PRESCRIPTION DRUG MONITORING REPORT IN PATIENT [place]: No Prescriptions: predniSONE [Prednisone] 20 mg PO ONETIME #1 tablet Instructions: Bee, Wasp, or Hornet Sting, Adult Referrals: PCP,None [Primary Care Provider] - Additional Instructions: You were seen in the emergency department today for a localized reaction to bee sting on your right thigh. While in the ER, you received an injection of Toradol and prednisone. Prescription has been sent for a tab of prednisone that you will take tomorrow. Recommend intermittent cold compresses. You may use jxii-iit-gtwzoaa antihistamine such as Benadryl or Claritin. Return to ER as needed. Sepsis Event Note (ED) - Evaluation Sepsis Screening Result: No Definite Risk - Focused Exam Vital Signs: Vital Signs Temp Pulse Resp BP Pulse Ox 01/16/21 11:44 97.9 F 89 16 124/85 99
== END 2021-01-16 12:30 | disposition home or self-care (01) ==
LOC: JD.ED 11:36
DX: S70.361A Insect bite (nonvenomous), right thigh, initial encounter (principal); J44.9 Chronic obstructive pulmonary disease, unspecified; E03.9 Hypothyroidism, unspecified; Z72.0 Tobacco use; Z79.899 Other long term (current) drug therapy; W57.XXXA Bitten or stung by nonvenomous insect and other nonvenomous arthropods, initial encounter
CPT/HCPCS: 96372; 99282; J1885; J7512; 99283

== ENCOUNTER 2024-04-30 01:53 | Emergency (ER) | payer SELFPAY ==
[2024-04-30] MEDS ORDERED: Sodium Chloride 0.9% 10 ML Syringe FLUSH PRN (02:19)
[2024-04-30] MEDS ORDERED: Iopamidol 612 MG/ML 100 ML Bottle IVPUSH ONE (02:24)
[2024-04-30 02:26] LABS: BASOPHILS ABSOLUTE AUTO 0.1 K/mm3 (0.0-0.2); BASOPHILS PERCENT AUTO 0.8 % (0.0-1.0); EOSINOPHILS ABSOLUTE AUTO 0.3 K/mm3 (0.0-0.4); EOSINOPHILS PERCENT AUTO 4.3 % (0.0-6.0); HEMATOCRIT 45.5 % (37.0-47.0); IMMATURE GRAN ABSOLUTE AUTO 0.02 K/mm3 (0.00-0.05); IMMATURE GRAN PERCENT AUTO 0.3 % (0.0-0.4); LYMPHOCYTES ABSOLUTE AUTO 2.1 K/mm3 (1.0-4.8); LYMPHOCYTES PERCENT AUTO 27.3 % (24.0-44.0); MEAN CORPUSCULAR HEMOGLOBIN 29.5 pg (28.0-32.0); MEAN CORPUSCULAR VOLUME 89.6 fl (83.0-99.0); MEAN PLATELET VOLUME 10.6 fl (9.4-12.3); MONOCYTES ABSOLUTE AUTO 0.7 K/mm3 (0.0-0.8); MONOCYTES PERCENT AUTO 9.6 % (0.0-8.0); NEUTROPHILS ABSOLUTE AUTO 4.4 K/mm3 (1.8-7.7); NEUTROPHILS PERCENT AUTO 57.7 % (41.0-71.0); PLATELET COUNT,PLT 332 K/mm3 (150-400); RED BLOOD CELL COUNT 5.08 M/mm3 (4.10-5.30); WHITE BLOOD CELL COUNT,WBC 7.59 K/mm3 (3.9-11.3)
[2024-04-30] MEDS: Famotidine 20 MG Tab PO ONE (02:28)
[2024-04-30] MEDS: Sodium Chloride 0.9% 1,000 ML IV ONE (02:29)
[2024-04-30] MEDS: Alum Hydrox/Mag Hydrox/Simeth 30 ML, Lidocaine 2% 15 ML PO ONE (02:29)
[2024-04-30 02:41] LABS: ALBUMIN 3.7 g/dl (3.4-5.0); ANION GAP 11.2 (5-15); BILIRUBIN TOTAL 0.4 mg/dL (0.2-1.0); CALCIUM 8.9 mg/dL (8.5-10.1); EST CRCL DRUG DOSING (CG) 54.24 mL/min; POTASSIUM,K 3.2 mEq/L (3.5-5.1); PROTEIN TOTAL,TP 7.3 g/dl (6.4-8.2)
[2024-04-30 03:29] LABS: APPEARANCE,URINE CLEAR (Clear); BILIRUBIN,URINE NEGATIVE (Negative); COLOR,URINE LIGHT YELLOW (Yellow); GLUCOSE,URINE NEGATIVE (Negative); KETONES,URINE NEGATIVE (Negative); LEUKOCYTE ESTERASE,URINE NEGATIVE (Negative); NITRITE,URINE NEGATIVE (Negative); OCCULT BLOOD,URINE NEGATIVE (Negative); PROTEIN,URINE NEGATIVE (Negative); UROBILINOGEN,URINE 0.2 (0.2-1.0)
== END 2024-04-30 04:08 | disposition home or self-care (01) ==
LOC: JD.ED 01:53
DX: R10.84 Generalized abdominal pain (principal); R19.7 Diarrhea, unspecified; J44.9 Chronic obstructive pulmonary disease, unspecified; K21.9 Gastro-esophageal reflux disease without esophagitis; E03.9 Hypothyroidism, unspecified; F17.210 Nicotine dependence, cigarettes, uncomplicated; Z79.899 Other long term (current) drug therapy
CPT/HCPCS: 36415; 74177; 80053; 81003; 83690; 85025; 93005; 96360; 99284; A9270; J7030